=== PATIENT | female | born 1975 | race Caucasian/White ===

== ENCOUNTER 2016-11-08 18:21 | Emergency (ER) | payer OTHER, MEDICAID ==
[2016-11-08] MEDS ORDERED: ASPIRIN 81 MG TABLET, CHEWABLE PO ONE (18:50)
--- NOTE | 2016-11-08 18:50 | ER Document Report ---
ED Medical Screen (RME) - General Stated Complaint: CHEST PAIN Time seen by provider: 18:48 Mode of Arrival: Ambulatory Information source: Patient Notes: 41-year-old female presents to ED for chest pain this substernal going up to her jaw with numbness down the left arm started about 10:00 this morning. She states she has MS and she's been shipped to [place] before for chest pain. She says they told her they thought it was related to the MS before. She states she stayed there for 3 days and she doesn't really remember what was done during that time. I have greeted and performed a rapid initial assessment of this patient. A comprehensive ED assessment and evaluation of the patient, analysis of test results and completion of medical decision making process will be conducted by an additional ED providers. TRAVEL OUTSIDE OF THE [place] IN LAST 30 DAYS: No - Related Data Allergies/Adverse Reactions: Penicillins Allergy (Mild, Verified 03/15/15 21:45) Hives Past Medical History - Past Medical History Cardiac Medical History: Reports: Hx Atrial Fibrillation - SVT, Hx DVT, Hx Pulmonary Embolism Denies: Hx Coronary Artery Disease, Hx Heart Attack, Hx Hypertension Pulmonary Medical History: Reports: Hx Bronchitis, Hx Pneumonia Denies: Hx Asthma, Hx COPD, Hx Tuberculosis Neurological Medical History: Reports: Hx Migraine. Denies: Hx Cerebrovascular Accident, Hx Seizures Endocrine Medical History: Reports: Hx Diabetes Mellitus Type 2 Renal/ Medical History: Reports: Hx Kidney Stones, Hx Ovarian Cysts Malignancy Medical History: Reports: Hx Skin Cancer GI Medical History: Reports: Hx Gastroesophageal Reflux Disease, Hx Irritable Bowel Musculoskeltal Medical History: Reports Hx Arthritis Psychiatric Medical History: Reports: Hx Anxiety, Hx Depression Traumatic Medical History: Reports: Hx Fractures Past Surgical History: Reports: Hx Section - x2, Hx Cholecystectomy, Hx Hysterectomy. Denies: Hx Pacemaker - Immunizations Immunizations up to date: Yes Hx Diphtheria, Pertussis, Tetanus Vaccination: Yes
[2016-11-08 19:18] LABS: ABSOLUTE BASOPHILS # (AUTO) 0.1 10^3/uL (0.0-0.2); ABSOLUTE EOSINOPHILS # (AUTO) 0.1 10^3/uL (0.0-0.6); ABSOLUTE LYMPHOCYTES (AUTO) 2.4 10^3/uL (0.5-4.7); ABSOLUTE MONOCYTES (AUTO) 0.4 10^3/uL (0.1-1.4); ABSOLUTE NEUT (AUTO) 4.6 10^3/uL (1.7-8.2); BASOPHILS % (AUTO) 0.7 % (0-2); HEMATOCRIT 42.1 % (36.0-47.0); HGB HCT DIFFERENCE -0.1; LYMPHOCYTES % (AUTO) 32.5 % (13-45); MEAN CORPUSCULAR HEMOGLOBIN 31.1 pg (27.0-33.4); MEAN CORPUSCULAR HGB CONC 33.2 g/dL (32.0-36.0); MEAN CORPUSCULAR VOLUME 94 fl (80-97); MONOCYTES % (AUTO) 5.1 % (3-13); RED CELL DISTRIBUTION WIDTH 13.4 % (11.5-14.0); SEGMENTED NEUTROPHILS % (AUTO) 60.7 % (42-78); WHITE BLOOD COUNT 7.5 10^3/uL (4.0-10.5)
[2016-11-08 19:32] LABS: ALANINE AMINOTRANSFERASE 22 U/L (9-52); ALKALINE PHOSPHATASE 56 U/L (38-126); ANION GAP 15 (5-19); ASPARTATE AMINO TRANSFERASE 18 U/L (14-36); BILIRUBIN,TOTAL 0.5 mg/dL (0.2-1.3); BLOOD UREA NITROGEN 7 mg/dL (7-20); CALCIUM 10.2 mg/dL (8.4-10.2); CARBON DIOXIDE 24 mmol/L (22-30); CHLORIDE 106 mmol/L (98-107); CREATINE KINASE 76 U/L (30-135); GLUCOSE 104 mg/dL (75-110); MAGNESIUM 2.2 mg/dL (1.6-2.3); POTASSIUM 4.1 mmol/L (3.6-5.0); SODIUM 144.8 mmol/L (137-145); TOTAL PROTEIN 8.1 g/dL (6.3-8.2)
[2016-11-08 19:43] LABS: CREATINE KINASE MB 0.33 ng/mL (<4.55); TROPONIN I < 0.012 ng/mL
[2016-11-08 19:57] LABS: APPEARANCE,URINE CLEAR; BILIRUBIN,URINE NEGATIVE (NEGATIVE); GLUCOSE, URINE NEGATIVE (NEGATIVE); KETONES,URINE NEGATIVE (NEGATIVE); LEUKOCYTE ESTERASE,URINE NEGATIVE (NEGATIVE); NITRITE,URINE NEGATIVE (NEGATIVE); PROTEIN,URINE NEGATIVE (NEGATIVE); URINE SPECIFIC GRAVITY 1.003; UROBILINOGEN,URINE NEGATIVE mg/dL (<2.0)
--- NOTE | 2016-11-08 19:59 | EKG REPORT ---
SEVERITY:- NORMAL ECG - SINUS RHYTHM : Confirmed by: Kindra Fleming MD 08-Nov-2016 19:58:30
[2016-11-08 20:10] LABS: URINE BARBITURATES SCREEN NEGATIVE; URINE METHADONE SCREEN NEGATIVE; URINE OPIATES LOW NEGATIVE; URINE PHENCYCLIDINE SCREEN NEGATIVE
[2016-11-08] MEDS ORDERED: ONDANSETRON 4 MG TAB.RAPDIS PO ONE (21:56)
[2016-11-08] MEDS ORDERED: HYDROCODONE/ACETAMINOPHEN 5-325 MG TABLET PO ONE (21:56)
--- NOTE | 2016-11-08 21:58 | ER Document Report ---
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 She feels a fluttering up in her neck and felt a numbness in her left hand. Patient states she had the same symptoms last month and was seen here but left AGAINST MEDICAL ADVICE with an incomplete workup. Patient states she has actually had this intermittently for some time, states that in 2013 she went to [facility] for 3 days and had multiple tests including imaging done, she states she believes she was told that she might have multiple sclerosis and this could've been the source of her pain. TRAVEL OUTSIDE OF THE [place] IN LAST 30 DAYS: No - Related Data Allergies/Adverse Reactions: Penicillins Allergy (Mild, Verified 11/08/16 18:48) Hives Past Medical History - General Information source: Patient - Social History Smoking Status: Current Every Day Smoker Chew tobacco use (# tins/day): No Frequency of alcohol use: None Drug Abuse: None Family History: CAD Patient has suicidal ideation: No Patient has homicidal ideation: No - Past Medical History Cardiac Medical History: Reports: Hx Atrial Fibrillation - SVT, Hx DVT, Hx Pulmonary Embolism Denies: Hx Coronary Artery Disease, Hx Heart Attack, Hx Hypertension Pulmonary Medical History: Reports: Hx Bronchitis, Hx Pneumonia Denies: Hx Asthma, Hx COPD, Hx Tuberculosis Neurological Medical History: Reports: Hx Migraine. Denies: Hx Cerebrovascular Accident, Hx Seizures Endocrine Medical History: Reports: Hx Diabetes Mellitus Type 2 Renal/ Medical History: Reports: Hx Kidney Stones, Hx Ovarian Cysts. Denies: Hx Peritoneal Dialysis Malignancy Medical History: Reports: Hx Skin Cancer GI Medical History: Reports: Hx Gastroesophageal Reflux Disease, Hx Irritable Bowel Musculoskeltal Medical History: Reports Hx Arthritis Psychiatric Medical History: Reports: Hx Anxiety, Hx Depression Traumatic Medical History: Reports: Hx Fractures Past Surgical History: Reports: Hx Section - x2, Hx Cholecystectomy, Hx Hysterectomy. Denies: Hx Pacemaker - Immunizations Immunizations up to date: Yes Hx Diphtheria, Pertussis, Tetanus Vaccination: Yes Review of Systems - Review of Systems Constitutional: No symptoms reported EENT: No symptoms reported Cardiovascular: See HPI Respiratory: See HPI Gastrointestinal: No symptoms reported Genitourinary: No symptoms reported Female Genitourinary: No symptoms reported Musculoskeletal: See HPI Skin: No symptoms reported Hematologic/Lymphatic: No symptoms reported Neurological/Psychological: See HPI Physical Exam - Vital signs Vitals: Temp Pulse Resp BP Pulse Ox 97.7 F 87 20 113/82 100 11/08/16 18:45 11/08/16 18:45 11/08/16 18:45 11/08/16 18:45 11/08/16 18:45 Interpretation: Normal - General General appearance: Appears well, Alert In distress: None - Patient sitting calmly, very well-appearing - HEENT Head: Normocephalic, Atraumatic Eyes: Normal Conjunctiva: Normal Extraocular movements intact: Yes Eyelashes: Normal Pupils: PERRL Nasal: Normal Mouth/Lips: Normal Mucous membranes: Normal Pharynx: Normal Neck: Normal - Respiratory Respiratory status: No respiratory distress Chest status: Nontender Breath sounds: Normal Chest palpation: Normal - Cardiovascular Rhythm: Regular. No: Tachycardia Heart sounds: Normal auscultation, S1 appreciated, S2 appreciated Murmur: No - Abdominal Inspection: Normal Distension: No distension Bowel sounds: Normal Tenderness: Nontender. No: Tender, Guarding Organomegaly: No organomegaly - Back Back: Normal, Nontender. No: Tender - Extremities General upper extremity: Normal inspection, Nontender, Normal strength, Normal temperature General lower extremity: Normal inspection, Nontender, Normal strength, Normal temperature - Neurological Neuro grossly intact: Yes Cognition: Normal Orientation: AAOx4 [place] Coma Scale Eye Opening: Spontaneous [place] Coma Scale Verbal: Oriented [place] Coma Scale Motor: Obeys Commands Kenneth Coma Scale Total: 15 Speech: Normal Motor strength normal: LUE, RUE, LLE, RLE Sensory: Normal - Psychological Associated symptoms: Normal affect, Normal mood - Skin Skin Temperature: Warm Skin Moisture: Dry Skin Color: Normal Course - Re-evaluation Re-evalutation: CBC, chemistry, cardiac enzymes, d-dimer, TSH, all unremarkable. Chest x-ray unremarkable, EKG shows sinus rhythm with no T-wave inversions in consecutive leads, no ST segment changes. On reevaluation several metallic asked patient wear her symptoms are she points to different location, the last time I evaluated her she pointed to the top of her shoulder on the left side. Patient told me she was having elevated heart rate and felt like her heart was racing, I immediately checked her heart manually at bedside and found the rate to be 68. Patient states that she was told the last time she had extensive workup for this that this might be related to her multiple sclerosis, she states that she was referred to an evaluated by neurology, she states that she wanted cardiac referral. Symptoms have been ongoing, based on her workup, previously similar symptoms, I have low suspicion of ACS or any emergent acute abnormality. Referring patient to cardiology, because of constellation of symptoms including pain over her chest patient will also be treated with Decadron, given Carafate because of history of GERD, and instructed to return if she worsens. Patient states understanding and agreement with plan. - Vital Signs Vital signs: Temp Pulse Resp BP Pulse Ox 98.2 F 69 14 120/72 97 11/09/16 00:21 11/09/16 00:21 11/09/16 00:21 11/09/16 00:21 11/09/16 00:21 - Laboratory Result Diagrams: 11/08/16 19:00 11/08/16 19:00 Discharge - Discharge Clinical Impression: Chest pain Qualifiers: Chest pain type: unspecified Qualified Code(s): R07.9 - Chest pain, unspecified Condition: Stable Disposition: HOME, SELF-CARE Additional Instructions: The source of your symptoms are unclear, your workup today shows no concerning abnormalities. Follow up with the Cardiology referral, take the carafate as directed. Return to the ED for any concerning or worsening symptoms. Prescriptions: Oxycodone HCl/Acetaminophen [Percocet 5-325 mg Tablet] 1 - 2 tab PO Q4H PRN #10 tablet PRN Reason: Sucralfate [Carafate 1 gm Tablet] 1 gm PO QID #40 tablet Referrals: NADEGE CLAY MD [ACTIVE STAFF] - Follow up as needed ABDIFATAH VELÁSQUEZ MD [ACTIVE STAFF] - 11/11/16
[2016-11-08] MEDS ORDERED: DEXAMETHASONE SOD PHOS INJ 10 MG/1 ML VIAL IM ONE (23:31)
[2016-11-09 00:29] VITALS: BP 120/72
== END 2016-11-09 00:25 | disposition home or self-care (01) ==
LOC: ER 18:21
DX: K21.9 Gastro-esophageal reflux disease without esophagitis (principal); R07.9 Chest pain, unspecified; R06.02 Shortness of breath; R20.0 Anesthesia of skin; E11.9 Type 2 diabetes mellitus without complications; F17.200 Nicotine dependence, unspecified, uncomplicated; Z86.711 Personal history of pulmonary embolism; Z86.718 Personal history of other venous thrombosis and embolism; Z87.01 Personal history of pneumonia (recurrent); Z85.828 Personal history of other malignant neoplasm of skin; Z88.0 Allergy status to penicillin
CPT/HCPCS: 93005; 99285; 96372; 36415; 82553; 82550; 83735; 84443; 85025; 80053; 81001; 84484; 80307; 85379; 83880; 71020; 93010; S0119; J1100

== ENCOUNTER 2016-11-13 18:24 | Emergency (ER) | payer OTHER, MEDICAID ==
[2016-11-13] MEDS ORDERED: NORMAL SALINE 1000 ML 1,000 ML IV ONE (19:27)
--- NOTE | 2016-11-13 19:27 | ER Document Report ---
ED General <SULAIMAN KRISHNAMURTHY - Last Filed: 11/13/16 22:51> - General Time seen by provider: 19:20 TRAVEL OUTSIDE OF THE [place] IN LAST 30 DAYS: No <KEVINRAMIRO - Last Filed: 11/14/16 06:34> - General Chief Complaint: Shortness Of Breath Stated Complaint: TREMORS,CHEST PAIN,SHORT OF BREATH Notes: Patient is a 41 year old female that comes to the ED for chief complaint of tremors, heart flutters, squeezing sensation in her chest, weakness in her legs. Symptoms intermittent, worse today. Patient states that she lost feeling and became lightheaded, and the bathroom in the waiting room she slumped against the wall and then down the wall, states she could not stop shaking, denies loss of consciousness. Patient states she has been very sleepy at home. Patient denies head, neck, back injury or any new areas of pain. EMS staff reports patient was alert and awake when she was found in the bathroom and brought to the bed to be placed on the monitor. Patient states she has had the same symptoms before but now abnormality has been found. Patient states that she has been told she might have multiple sclerosis, she's been referred to neurology but she has not had the chance to follow-up yet. Patient has a medication list with her this time, includes Klonopin 0.5 mg daily at bedtime, Percocet 10/325 q4 PRN, Zoloft, Nexium. (RAMIRO STORM) - Related Data Allergies/Adverse Reactions: Penicillins Allergy (Mild, Verified 11/08/16 18:48) Hives Past Medical History - General Information source: Patient - Social History Smoking Status: Current Every Day Smoker Chew tobacco use (# tins/day): Yes Frequency of alcohol use: None Drug Abuse: None Lives with: Family Family History: CAD Patient has suicidal ideation: No Patient has homicidal ideation: No - Past Medical History Cardiac Medical History: Reports: Hx Atrial Fibrillation - SVT, Hx DVT, Hx Pulmonary Embolism Denies: Hx Coronary Artery Disease, Hx Heart Attack, Hx Hypertension Pulmonary Medical History: Reports: Hx Bronchitis, Hx Pneumonia Denies: Hx Asthma, Hx COPD, Hx Tuberculosis Neurological Medical History: Reports: Hx Migraine. Denies: Hx Cerebrovascular Accident, Hx Seizures Endocrine Medical History: Reports: Hx Diabetes Mellitus Type 2 Renal/ Medical History: Reports: Hx Kidney Stones, Hx Ovarian Cysts. Denies: Hx Peritoneal Dialysis Malignancy Medical History: Reports: Hx Skin Cancer GI Medical History: Reports: Hx Gastroesophageal Reflux Disease, Hx Irritable Bowel Musculoskeltal Medical History: Reports Hx Arthritis Psychiatric Medical History: Reports: Hx Anxiety, Hx Depression Traumatic Medical History: Reports: Hx Fractures Past Surgical History: Reports: Hx Section - x2, Hx Cholecystectomy, Hx Hysterectomy. Denies: Hx Pacemaker - Immunizations Immunizations up to date: Yes Hx Diphtheria, Pertussis, Tetanus Vaccination: Yes <RAMIRO STORM - Last Filed: 11/14/16 06:34> Review of Systems - Review of Systems Constitutional: No symptoms reported EENT: No symptoms reported Cardiovascular: See HPI Respiratory: See HPI Gastrointestinal: No symptoms reported Genitourinary: No symptoms reported Female Genitourinary: No symptoms reported Musculoskeletal: No symptoms reported Skin: No symptoms reported Hematologic/Lymphatic: No symptoms reported Neurological/Psychological: See HPI <RAMIRO STORM - Last Filed: 11/14/16 06:34> Physical Exam - Vital signs Interpretation: Normal - General General appearance: Appears well, Alert In distress: None - patient alert, talkative, twitching arms and legs but no distress noted - HEENT Head: Normocephalic, Atraumatic. No: Abrasions, Ecchymosis, Open wounds Eyes: Normal Conjunctiva: Normal Extraocular movements intact: Yes Eyelashes: Normal Pupils: PERRL Sinus: Normal Nasal: Normal Mouth/Lips: Normal Mucous membranes: Normal Pharynx: Normal Neck: Normal - Respiratory Respiratory status: No respiratory distress Chest status: Nontender Breath sounds: Normal Chest palpation: Normal - Cardiovascular Rhythm: Regular Heart sounds: Normal auscultation Murmur: No - Abdominal Inspection: Normal Distension: No distension Bowel sounds: Normal Tenderness: Nontender Organomegaly: No organomegaly - Back Back: Normal, Nontender - Extremities General upper extremity: Normal inspection, Nontender, Normal color, Normal ROM , Normal temperature General lower extremity: Normal inspection, Nontender, Normal color, Normal ROM , Normal temperature, Normal weight bearing. 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 Sensory: Normal - Psychological Associated symptoms: Normal affect, Normal mood - Skin Skin Temperature: Warm Skin Moisture: Dry Skin Color: Normal <RAMIRO STORM - Last Filed: 11/14/16 06:34> - Vital signs Vitals: Resp Pulse Ox 24 H 97 11/13/16 18:49 11/13/16 18:49 (SULAIMAN KRISHNAMURTHY) (RAMIRO STORM) Course - Laboratory Result Diagrams: 11/13/16 18:50 11/13/16 18:50 <SULAIMAN KRISHNAMURTHY - Last Filed: 11/13/16 22:51> - Laboratory Result Diagrams: 11/13/16 18:50 11/13/16 18:50 <RAMIRO STORM - Last Filed: 11/14/16 06:34> - Re-evaluation Re-evalutation: On my examination patient has what appear to be voluntary tremors of her upper and lower extremities, patient is wide awake, speaking, patient is not lethargic , patient does not appear to be post ictal. Patient does not have his history of seizure disorders, patient herself denies any memory loss or loss of consciousness, patient has a normal neurologic exam on my examination. Vital signs normal, workup unremarkable again, patient has had multiple normal workups recently. I discussed workup with patient, I do not see any acute abnormality, chest pains patient has complained of her months always had negative workups and patient has still not follow-up with cardiology even though she has stated she would and she has been referred. Patient has also been referred to neurology. Patient is requesting to get a second opinion, states she would like to speak to my supervising physician. Patient spoke with Dr. Krishnamurthy. Dr. Krishnamurthy did find that patient had a normal MRI in 2014, patient had told me that she had an abnormal MRI. Based on examination, workup , symptoms I have very low suspicion of any acute abnormality including acute coronary syndrome, patient has been evaluated within the week with d-dimer that is not elevated, patient is not tachycardic or in any distress, patient does not have shortness of breath. Discussed with Dr. Krishnamurthy after his evaluation. Discharging and follow-up with cardiology and neurology. (RAMIRO STORM) - Vital Signs Vital signs: Temp Pulse Resp BP Pulse Ox 98.8 F 92 16 108/74 95 11/13/16 19:16 11/13/16 19:00 11/13/16 22:01 11/13/16 22:01 11/13/16 22:01 (SULAIMAN KRISHNAMURTHY) (RAMIRO STORM) - Transfer of Care Notes: 11/13/16 22:51 Patient was seen by Ramiro Storm, physician's assistant head cashier. Informed her that the patient's presents for complaint of chest pain which she's been seen here for several times in the past. She has had several workups which have been negative. I did see her back in September. At that time she had previously been seen at [facility] and had a heart cath however she could not tell me the results of it according to my documentation from September. He says she again complains today of chest pain. She also complains of having tremors and seizure-like activity. Mr. Storm said that the patient would have episodes where she started trembling in the awake and alert. He said that the tremors appeared voluntary and should would be awake for the entire episode and it did not appear consistent with seizure. She never had any postictal phase. She did not have any other neurologic deficits on his exam. He is attempting to refer her to cardiology due to her chronic recurring chest pain as well as neurology but the patient is unhappy with this disposition requested to see the attending physician, me. Prior to going into the room I did review the patient' s records. She had told Ramiro that she had a previous MRI which showed lesions consistent with multiple sclerosis. I did find an MRI performed in [address] Granger. This MRI was read as normal. I also reviewed multiple visits to the ER where she's had multiple cardiac workups with negative cardiac enzymes. I then once the room to discuss the patient her symptoms and what her concerns are and try to feel what I can do to help her. She describes her chest pain as being a pressure type sensation in her chest that goes up into her neck and feels like a pulsating in her neck. She says it's been ongoing for a long time and comes and goes. She says that she has tremors at, and go effects both sides of her body. She is unsure what causes these as well. She says that she' s had a previous number puncture which showed bands. She was told this by Dr. Granger. She also is says that she was told by Dr. Granger that her MRI showed signs of multiple sclerosis. I did inform her that did review the results of MRI that was performed by Dr. Granger and it was read as normal. Told her that I cannot find results a lumbar puncture prior to me going in there. Currently on exam patient's moving all extremities as she talks to me is normal coordination she has normal facial movement and normal interaction without any signs or speech. The patient says she wishes to be transferred by him once to facility that has neurology for neurology workup. Informed her that I do not currently have a EMTALA worthy reason to transfer and therefore the outside facilities would not have to nescessary accept her based on what Mr. Storm has found on exam and workup. I informed her that I would have to evaluate her to see what deficits I could find. If I find something different with my medical exam than I may be able to justify transfer. Patient refuses any physical exam evaluation by me. I asked her why she does not want me to evaluate her, she says "the physician's assistant head cashier has already evaluated me, I do not need you to evaluate me as well." I informed her that I cannot make a well informed decision on her future care were possibly and change what Mr. Storm has found if I cannot evaluate her to see if I have any different findings on my exam. Patient still refuses my exam and now requests to be discharged home. Patient has refused by medical screening exam which still somewhat baffles me being that she requested a second opinion. I will discharge the patient as she requests. I cannot hold her against her will. She is awake and alert and oriented and acting otherwise appropriately. Patient will be discharged as she requests. (SULAIMAN KRISHNAMURTHY) Discharge <SULAIMAN KRISHNAMURTHY - Last Filed: 11/13/16 22:51> <RAMIRO STORM - Last Filed: 11/14/16 06:34> - Discharge Clinical Impression: Occasional tremors Chest pain Qualifiers: Chest pain type: unspecified Qualified Code(s): R07.9 - Chest pain, unspecified Condition: Stable Disposition: HOME, SELF-CARE Additional Instructions: No acute abnormalities are noted on your workup and evaluation today. Continue your current medications. Follow up with both Neurology and Cardiology referrals for additional evaluation. Return to the ED for any concerning symptoms. Referrals: FRANK SALMERON MD [Primary Care Provider] - Follow up as needed ABDIFATAH VELÁSQUEZ MD [ACTIVE STAFF] - Follow up as needed GREGORIO FARIA MD [ACTIVE STAFF] - Follow up as needed
[2016-11-13 19:46] LABS: ABSOLUTE BASOPHILS # (AUTO) 0.1 10^3/uL (0.0-0.2); ABSOLUTE EOSINOPHILS # (AUTO) 0.2 10^3/uL (0.0-0.6); ABSOLUTE LYMPHOCYTES (AUTO) 3.1 10^3/uL (0.5-4.7); ABSOLUTE MONOCYTES (AUTO) 0.5 10^3/uL (0.1-1.4); ABSOLUTE NEUT (AUTO) 4.1 10^3/uL (1.7-8.2); BASOPHILS % (AUTO) 0.7 % (0-2); EOSINOPHILS % (AUTO) 1.9 % (0-6); HEMATOCRIT 37.3 % (36.0-47.0); HEMOGLOBIN 12.7 g/dL (12.0-15.5); HGB HCT DIFFERENCE 0.8; LYMPHOCYTES % (AUTO) 39.5 % (13-45); MEAN CORPUSCULAR HEMOGLOBIN 31.8 pg (27.0-33.4); MEAN CORPUSCULAR VOLUME 94 fl (80-97); MONOCYTES % (AUTO) 5.9 % (3-13); RED BLOOD COUNT 3.99 10^6/uL (3.72-5.28); RED CELL DISTRIBUTION WIDTH 13.2 % (11.5-14.0); WHITE BLOOD COUNT 7.9 10^3/uL (4.0-10.5)
[2016-11-13 19:52] LABS: ALANINE AMINOTRANSFERASE 23 U/L (9-52); ALBUMIN 4.1 g/dL (3.5-5.0); ALCOHOL < 10 mg/dL (NONE DETECTED); ALKALINE PHOSPHATASE 57 U/L (38-126); ANION GAP 10 (5-19); ASPARTATE AMINO TRANSFERASE 19 U/L (14-36); BILIRUBIN,TOTAL 0.3 mg/dL (0.2-1.3); BLOOD UREA NITROGEN 11 mg/dL (7-20); CALCIUM 9.6 mg/dL (8.4-10.2); CARBON DIOXIDE 27 mmol/L (22-30); CHLORIDE 106 mmol/L (98-107); CREATINE KINASE 65 U/L (30-135); CREATININE RESULT 0.86 mg/dL (0.52-1.25); GLUCOSE 82 mg/dL (75-110); MAGNESIUM 2.1 mg/dL (1.6-2.3); POTASSIUM 4.1 mmol/L (3.6-5.0); SODIUM 143.4 mmol/L (137-145); TOTAL PROTEIN 7.1 g/dL (6.3-8.2)
[2016-11-13] MEDS ORDERED: LORAZEPAM INJ 2 MG/1 ML VIAL IV ONE (19:56)
[2016-11-13 20:06] LABS: CREATINE KINASE MB < 0.22 ng/mL (<4.55); TROPONIN I < 0.012 ng/mL
[2016-11-13 20:10] LABS: APPEARANCE,URINE CLEAR; BILIRUBIN,URINE NEGATIVE (NEGATIVE); GLUCOSE, URINE NEGATIVE (NEGATIVE); KETONES,URINE NEGATIVE (NEGATIVE); LEUKOCYTE ESTERASE,URINE NEGATIVE (NEGATIVE); NITRITE,URINE NEGATIVE (NEGATIVE); PROTEIN,URINE NEGATIVE (NEGATIVE); UROBILINOGEN,URINE NEGATIVE mg/dL (<2.0)
[2016-11-13 20:21] LABS: URINE BARBITURATES SCREEN NEGATIVE; URINE METHADONE SCREEN NEGATIVE; URINE OPIATES LOW NEGATIVE; URINE PHENCYCLIDINE SCREEN NEGATIVE
[2016-11-13 22:39] VITALS: BP 108/74
--- NOTE | 2016-11-14 11:22 | EKG REPORT ---
SEVERITY:- NORMAL ECG - SINUS RHYTHM : Confirmed by: Javid Guidry 14-Nov-2016 11:21:43
== END 2016-11-13 22:45 | disposition home or self-care (01) ==
LOC: ER 18:24
DX: R07.9 Chest pain, unspecified (principal); R25.1 Tremor, unspecified; R06.02 Shortness of breath; R53.1 Weakness; F17.210 Nicotine dependence, cigarettes, uncomplicated
CPT/HCPCS: 93005; 99285; 96361; 96374; 36415; 82553; 82962; 80307 ×2; 82550; 83735; 85025; 80053; 81001; 84484; 71010; 93010; J2060; J7030

== ENCOUNTER 2016-11-21 08:15 | Day surgery (SDC) | payer OTHER, MEDICAID ==
[2016-11-21 09:15] LABS: PROTHROMBIN TIME 12.6 SEC (11.4-15.4)
[2016-11-21 09:16] LABS: PARTIAL THROMBOPLASTIN TIME 25.8 SEC (23.5-35.8)
[2016-11-21] MEDS ORDERED: ACETAMINOPHEN 325 MG TABLET ONE (11:32)
[2016-11-21] MEDS ORDERED: ACETAMINOPHEN 325 MG TABLET PO PRN (11:48)
[2016-11-21 11:53] LABS: APPEARANCE ALL TUBES CLEAR; RBC AVERAGE 0.5; RBC DILUENT USED NONE USED; RBC DILUTION FACTOR 1; RBC SIDE 1 0; RBC SIDE 2 1; TOTAL RBC SQUARES COUNTED 225
[2016-11-21 11:54] LABS: WHITE BLOOD CELL,CSF 2 /uL (0-5)
[2016-11-21 12:10] LABS: GLUCOSE,CSF 55 mg/dL (40-70)
[2016-11-21 14:09] VITALS: BP 111/75
[2016-11-22 15:38] LABS: ALBUMIN SERUM 4.2 g/dL (3.5-5.5); CSF IGG INDEX 0.6 (0.0-0.7); IGG SYNTHESIS RATE CSF -0.3 mg/day (-9.9 TO +3.3); IGG/ALBUMIN RATIO CSF 0.1 (0.00-0.25)
== END 2016-11-21 13:30 | disposition home or self-care (01) ==
LOC: RAD 08:15
PROVIDERS: ATTEND Specialist
PROC: 009U3ZX Drainage of Spinal Canal, Percutaneous Approach, Diagnostic (ICD-10-PCS; principal; 2016-11-21)
DX: G35 Multiple sclerosis (principal); R25.1 Tremor, unspecified; G40.909 Epilepsy, unspecified, not intractable, without status epilepticus; Z88.0 Allergy status to penicillin
CPT/HCPCS: 36415; 62270; 77003; 82784; 82945; 82947; 83916; 84157; 85610; 85730; 87070; 87205; 89050

== ENCOUNTER 2016-11-26 07:28 | Day surgery (SDC) | payer OTHER, MEDICAID ==
[~2016-11-26 07:28] MED LIST: DIPHENHYDRAMINE HCL 50 MG/ML VIAL ONE; EPINEPHRINE INJ 1 MG/10 ML DISP.SYRIN ONE; FLUMAZENIL INJ 0.5 MG/5 ML VIAL IV ONE; GLUCAGON,HUMAN RECOMB 1 MG INJ ONE; NALOXONE HCL INJ/PF 0.4 MG/1 ML SDV ONE; ONDANSETRON HCL INJ/PF 4 MG/2 ML SDV ONE; PROMETHAZINE HCL INJ 25 MG/1 ML VIAL ONE
[2016-11-26] MEDS: MIDAZOLAM 2 MG/2 ML INJ ONE ×3 (08:10→08:18)
[2016-11-26] MEDS: FENTANYL CITRATE INJ/PF 100 MCG/2 ML AMPUL ONE ×2 (08:12→08:14)
--- NOTE | 2016-11-26 08:33 | Operative Report ---
Operative Report DATE OF SURGERY: 11/26/16 Operative Report: The risks benefits and alternatives of the procedure explained to the patient in detail and informed consent is obtained that GIF Olympus video scope was inserted into the patient's mouth and hypopharynx the esophagus is identified intubated and insufflated the scope was then advanced through the esophagus stomach and duodenum retroflexion maneuver is done the esophagus stomach and first and second portions of the duodenum examined PREOPERATIVE DIAGNOSIS: Gastro-esophageal reflux disease, epigastric discomfort POSTOPERATIVE DIAGNOSIS: Gastritis status post biopsy rule out Helicobacter pylori OPERATION: EGD with biopsy SURGEON: RUTH ANN SIMPSON ANESTHESIA: Moderate Sedation - 6 mg of Versed, 100 g of fentanyl. TISSUE REMOVED OR ALTERED: Gastric specimen obtained COMPLICATIONS: None. ESTIMATED BLOOD LOSS: none. INTRAOPERATIVE FINDINGS: Normal esophagus. First and second portions of the duodenum are normal. PROCEDURE: Patient tolerated the procedure well. No immediate postprocedure complications are noted. Patient is discharged in good condition. Discharge date 11/26/2016. Discharge diet: Regular. Discharge activity: Regular. We'll await on biopsies Patient has a 2-3 week follow-up to discuss findings. Patient is instructed to call the office or proceed to the emergency room if any further problems or questions.
[2016-11-26 09:48] VITALS: BP 95/56
== END 2016-11-26 09:30 | disposition home or self-care (01) ==
LOC: END 07:28
PROVIDERS: ATTEND Internal Medicine Gastroenterology
PROC: 0DB68ZX Excision of Stomach, Via Natural or Artificial Opening Endoscopic, Diagnostic (ICD-10-PCS; principal; 2016-11-26 08:00)
DX: K21.9 Gastro-esophageal reflux disease without esophagitis (principal); M19.90 Unspecified osteoarthritis, unspecified site; D64.9 Anemia, unspecified; E11.9 Type 2 diabetes mellitus without complications; I10 Essential (primary) hypertension; K29.50 Unspecified chronic gastritis without bleeding; G35 Multiple sclerosis; E78.00 Pure hypercholesterolemia, unspecified; Z79.899 Other long term (current) drug therapy; Z79.84 Long term (current) use of oral hypoglycemic drugs; Z88.0 Allergy status to penicillin
CPT/HCPCS: 43239; 88342 ×2; 88305 ×2; J2250; J3010; J2405; J0171; J1200; J1610; J2310; J2550; J3490

== ENCOUNTER 2017-03-25 12:50 | Emergency (ER) | payer OTHER, MEDICAID ==
[2017-03-25 13:07] VITALS: BP 121/60
--- NOTE | 2017-03-25 14:05 | ER Document Report ---
ED Extremity Problem, Lower - General Chief Complaint: Low Back Pain Stated Complaint: BACK PAIN,LEFT HIP PAIN Time Seen by Provider: 03/25/17 13:46 Mode of Arrival: Ambulatory Information source: Patient Notes: 42-year-old female presents to ED for left hip and low back pain since yesterday when she was walking and felt a pop. He has a history of chronic back pain and MS states she recently had a epidural for her chronic back pain. States she been taking 2 ibuprofen at a time and has had 6 ibuprofen yesterday and several today TRAVEL OUTSIDE OF THE [place] IN LAST 30 DAYS: No - HPI Patient complains to provider of: Pain Location: Hip - Left Occurred: Yesterday Where: Outdoors Onset/Duration: Gradual Quality of pain: Sharp Severity: Moderate Pain Level: 4 Recent injury: Possibly Associated symptoms: Dent a pop, Painful ambulation Exacerbated by: Movement, Walking Relieved by: Nothing - Related Data Allergies/Adverse Reactions: Penicillins Allergy (Mild, Verified 03/25/17 13:04) Hives Past Medical History - General Information source: Patient - Social History Smoking Status: Current Every Day Smoker Chew tobacco use (# tins/day): No Frequency of alcohol use: None Drug Abuse: None Lives with: Family Family History: CAD Patient has suicidal ideation: No Patient has homicidal ideation: No - Past Medical History Cardiac Medical History: Reports: Hx Atrial Fibrillation - SVT, Hx DVT, Hx Pulmonary Embolism Pulmonary Medical History: Reports: Hx Bronchitis, Hx Pneumonia EENT Medical History: Reports: None Neurological Medical History: Reports: Hx Migraine Endocrine Medical History: Reports: Hx Diabetes Mellitus Type 2 Renal/ Medical History: Reports: Hx Kidney Stones, Hx Ovarian Cysts Malignancy Medical History: Reports: Hx Skin Cancer GI Medical History: Reports: Hx Gastroesophageal Reflux Disease, Hx Irritable Bowel Musculoskeltal Medical History: Reports Hx Arthritis, Reports Hx Multiple Sclerosis Skin Medical History: Reports None Psychiatric Medical History: Reports: Hx Anxiety, Hx Depression Traumatic Medical History: Reports: Hx Fractures Infectious Medical History: Reports: None Past Surgical History: Reports: Hx Section - x2, Hx Cholecystectomy, Hx Hysterectomy - Immunizations Immunizations up to date: Yes Hx Diphtheria, Pertussis, Tetanus Vaccination: Yes Review of Systems - Review of Systems Constitutional: No symptoms reported EENT: No symptoms reported Cardiovascular: No symptoms reported Respiratory: No symptoms reported Gastrointestinal: No symptoms reported Genitourinary: No symptoms reported Female Genitourinary: No symptoms reported Musculoskeletal: Back pain, Other - Hip pain left Skin: No symptoms reported Hematologic/Lymphatic: No symptoms reported Neurological/Psychological: No symptoms reported -: Yes All other systems reviewed and negative Physical Exam - Vital signs Vitals: Temp Pulse Resp BP Pulse Ox 98.2 F 63 16 121/60 98 03/25/17 13:04 03/25/17 13:04 03/25/17 13:04 03/25/17 13:04 03/25/17 13:04 Interpretation: Normal - General General appearance: Appears well, Alert - HEENT Head: Normocephalic, Atraumatic Eyes: Normal Pupils: PERRL - Respiratory Respiratory status: No respiratory distress Chest status: Nontender Breath sounds: Normal Chest palpation: Normal - Cardiovascular Rhythm: Regular Heart sounds: Normal auscultation Murmur: No - Abdominal Inspection: Normal Distension: No distension Bowel sounds: Normal Tenderness: Tender - Left pelvic tenderness Organomegaly: No organomegaly - Back Back: Normal, Tender. No: Deformity/step-off, CVA tenderness, Vertebra tenderness, Scars, Scoliosis, Wounds - Extremities General upper extremity: Normal inspection, Nontender, Normal color, Normal ROM , Normal temperature General lower extremity: Normal color, Normal temperature. No: Lili's sign Hip: Tender, Pain with ROM. No: Normal, Nontender, Abrasion, Deformity, Dislocation, Ecchymosis, Instability, Laceration, Unable to bear weight, Other Thigh: Tender. No: Normal, Nontender, Abrasion, Deformity, Dislocation, Ecchymosis, Instability, Laceration, Unable to bear weight, Other - Neurological Neuro grossly intact: Yes Cognition: Normal Orientation: AAOx4 Kenneth Coma Scale Eye Opening: Spontaneous [place] Coma Scale Verbal: Oriented [place] Coma Scale Motor: Obeys Commands [place] Coma Scale Total: 15 Speech: Normal Motor strength normal: LUE, RUE, LLE, RLE Sensory: Normal - Psychological Associated symptoms: Normal affect, Normal mood - Skin Skin Temperature: Warm Skin Moisture: Dry Skin Color: Normal Course - Re-evaluation Re-evalutation: 03/25/17 15:09 Discussed x-rays with patient and patient discharged home with instructions to follow-up with her primary doctor. - Vital Signs Vital signs: Temp Pulse Resp BP Pulse Ox 98.2 F 63 16 121/60 98 03/25/17 13:04 03/25/17 13:04 03/25/17 13:04 03/25/17 13:04 03/25/17 13:04 - Diagnostic Test Radiology reviewed: Image reviewed, Reports reviewed Discharge - Discharge Clinical Impression: Left hip pain Back pain Qualifiers: Back pain location: low back pain Chronicity: chronic Back pain laterality: unspecified Sciatica presence: without sciatica Qualified Code(s): M54.5 - Low back pain Condition: Stable Disposition: HOME, SELF-CARE Additional Instructions: LOW BACK PAIN: Three out of every four people will have an episode of disabling back pain during their lifetime. Most commonly the pain is due to straining of the muscles and ligaments in the low back. Usual treatment includes: (1) Rest on a firm surface. Avoid lying on your stomach. (2) Ice pack the painful area. After a few days, gentle heat may be used intermittently to relax the area, or ice packs can be continued. (3) Medication may be needed -- muscle relaxers and antiinflammatory medicines are commonly used. (4) As the back improves, exercises are prescribed to strengthen the back and abdominal muscles. Your doctor will advise you on the proper care for your back at each stage in your recovery. You may be better in a few days -- or healing may take several weeks. If new symptoms of a "herniated disc" (radiation of pain, numbness, or tingling down the back of the leg or weakness in the leg) occur, you should be re-examined. Further testing may be necessary. Also seen for a left hip pain with no acute changes on your x-ray. 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 Chronic Pain Control Stress, inactivity, and depression make pain more severe regardless of the cause of the pain. Stress and poor physical condition can cause pain such as headaches and backache. Relaxation: Rest in a quiet place with your eyes closed for 20 minutes twice daily. Concentrate on a pleasant image, or simply "feel" your breathing. Clear your mind. Stress management: Deal with your "stressors." Either take action, or eliminate the stressor from your life. Don't let things hang over you. Accept those things you can't change. Nutrition: Eat small, balanced meals -- don't skip, don't overeat. Meals should be high-carbohydrate, low-sugar, low-fat. Exercise: Exercise helps painful conditions and eases stress. Get 30 minutes of moderate exercise, five days a week. Do an activity that does not flare your pain. Precautions: Pain which continues to disrupt daily activities, or which changes in nature, requires a medical evaluation. Pain Clinic referral is available. We do not manage chronic pain in the Emergency Department. We will try to appropriately help you through an acute flare of your chronic painful condition , but for on-going chronic pain that does not improve, you will need to see your private doctor or shipyard painter apprentice. We do not provide repeated medication management of chronic painful conditions. If you wish, we can provide the name of local pain management physicians. ORAL NARCOTIC MEDICATION: You have been given a prescription for pain control. This medication is a narcotic. It's best taken with food, as nausea can result if taken on an empty stomach. Don't operate machinery or drive within six hours of taking this medication. Do not combine this medicine with alcohol, or with any medication which can cause sedation (such as cold tablets or sleeping pills) unless you get permission from the physician. Narcotics tend to cause constipation. If possible, drink plenty of fluids and eat a diet high in fiber and fruits. Please be aware that prescription narcotics also have the potential for abuse. People become addicted to these medications because of the general sense of wellbeing that they induce. This feeling along with a significant reduction in tension, anxiety, and aggression provides a stimulating seductive quality to these drugs. Once your pain is under control, we encourage you to discard your unused narcotics. ICE PACKS: Apply ice packs frequently against the painful area. Many different schedules are recommended, such as "20 minutes on, 20 minutes off" or "one hour ice, two hours rest." If you need to work, you may need to go longer between ice treatments. You should plan to have the area ice packed AT LEAST one fourth of the time. The ice should be applied over the wrap, tape, or splint, or over a layer of cloth -- not directly against the skin. Some ice bags have a built-in cloth and can be put directly on the skin. WARM PACKS: After approximately two days, apply gentle heat (such as a heating pad or hot water bottle) for about 20 to 30 minutes about every two hours -- at least four times daily. Warmth and elevation will help you make a more rapid recovery , and will ease the pain considerably. Do not use HOT heat, and never apply heat for longer than 30 minutes. The continuous heat can invisibly damage skin and muscles -- even when no burn is seen on the surface. Damaged muscles can make you MORE sore. FOLLOW-UP CARE: If you have been referred to a physician for follow-up care, call the physician s office for an appointment as you were instructed or within the next two days. If you experience worsening or a significant change in your symptoms, notify the physician immediately or return to the Emergency Department at any time for re-evaluation. Forms: Smoking Cessation Education, Return to Work Referrals: HARMONY CASTRO MD [ACTIVE STAFF] - Follow up as needed
[2017-03-25 14:32] LABS: APPEARANCE,URINE SLIGHTLY-CLOUDY; BILIRUBIN,URINE NEGATIVE (NEGATIVE); GLUCOSE, URINE NEGATIVE (NEGATIVE); KETONES,URINE NEGATIVE (NEGATIVE); LEUKOCYTE ESTERASE,URINE NEGATIVE (NEGATIVE); NITRITE,URINE NEGATIVE (NEGATIVE); PROTEIN,URINE NEGATIVE (NEGATIVE); URINE SPECIFIC GRAVITY 1.009; UROBILINOGEN,URINE NEGATIVE mg/dL (<2.0)
--- NOTE | 2017-03-25 15:03 | RADIOLOGY REPORT (SQ) ---
EXAM DESCRIPTION: HIP LEFT AP/LATERAL COMPLETED DATE/TIME: 03/25/2017 2:29 pm REASON FOR STUDY: pain and popping COMPARISON: None. NUMBER OF VIEWS: Two views. TECHNIQUE: AP pelvis and additional frog-leg view of the left hip. LIMITATIONS: None. FINDINGS: MINERALIZATION: Normal. PRIMARY HIP: No fracture or dislocation. No worrisome bone lesions. OPPOSITE HIP: No fracture or dislocation. No worrisome bone lesions. PUBIS AND ISCHIUM: No fracture. PELVIS: No fracture. SACRUM: No fracture or dislocation. No worrisome bone lesions. LOWER LUMBAR SPINE: No fracture or dislocation. No worrisome bone lesions. No significant disc disea se. SOFT TISSUES: No findings. OTHER: No other significant finding. IMPRESSION: NEGATIVE STUDY OF THE LEFT HIP AND PELVIS. NO ACUTE POST-TRAUMATIC CHANGES. NO EXPLANAT ION FOR PAIN. TECHNICAL DOCUMENTATION: JOB ID: [id number] [employer]- All Rights Reserved
[2017-03-25] MEDS ORDERED: HYDROCODONE/ACETAMINOPHEN 5-325 MG 6 TAB/DSPK PO PRN (15:15)
== END 2017-03-25 15:40 | disposition home or self-care (01) ==
LOC: ER 12:50
DX: M25.552 Pain in left hip (principal); M54.5 Low back pain; G89.29 Other chronic pain; G35 Multiple sclerosis; F17.200 Nicotine dependence, unspecified, uncomplicated; I48.91 Unspecified atrial fibrillation; E11.9 Type 2 diabetes mellitus without complications; K21.9 Gastro-esophageal reflux disease without esophagitis; Z87.442 Personal history of urinary calculi; Z86.711 Personal history of pulmonary embolism; Z86.718 Personal history of other venous thrombosis and embolism; Z88.0 Allergy status to penicillin; Z90.49 Acquired absence of other specified parts of digestive tract; Z90.710 Acquired absence of both cervix and uterus
CPT/HCPCS: 81001; 99283

== ENCOUNTER 2017-04-22 21:35 | Emergency (ER) | payer MEDICAID, OTHER ==
[2017-04-22] MEDS ORDERED: DIPHENHYDRAMINE HCL 50 MG/ML VIAL IV ONE (23:31)
[2017-04-22] MEDS ORDERED: METOCLOPRAMIDE HCL INJ/PF 10 MG/2 ML SDV IV ONE (23:31)
[2017-04-22] MEDS ORDERED: NORMAL SALINE 1000 ML 1,000 ML IV ONE (23:31)
[2017-04-22] MEDS ORDERED: HYDROCODONE/ACETAMINOPHEN 5-325 MG TABLET PO ONE (23:35)
[2017-04-22] MEDS ORDERED: ONDANSETRON 4 MG TAB.RAPDIS PO ONE (23:35)
--- NOTE | 2017-04-22 23:37 | ER Document Report ---
ED Medical Screen (RME) - General Chief Complaint: Headache Stated Complaint: HEAD PAIN Time Seen by Provider: 04/22/17 23:22 Notes: 42-year-old female, chief complaint of ongoing headaches, scheduled for an MRI which could not happen because of her insurance, states pain is sharp, left oriental orthodox area, intermittently worse. Tried Fioricet at home without any improvement. Also on Lyrica. Has had 3 lumbar punctures for this already. Denies head injury, fever, reports some nausea, denies vomiting. Denies neck pain. TRAVEL OUTSIDE OF THE [place] IN LAST 30 DAYS: No - Related Data Allergies/Adverse Reactions: Penicillins Allergy (Mild, Verified 04/22/17 22:02) Hives Past Medical History - Past Medical History Cardiac Medical History: Reports: Hx Atrial Fibrillation - SVT, Hx DVT, Hx Pulmonary Embolism Pulmonary Medical History: Reports: Hx Bronchitis, Hx Pneumonia Neurological Medical History: Reports: Hx Migraine. Denies: Hx Seizures Endocrine Medical History: Reports: Hx Diabetes Mellitus Type 2 Renal/ Medical History: Reports: Hx Kidney Stones, Hx Ovarian Cysts. Denies: Hx Peritoneal Dialysis Malignancy Medical History: Reports: Hx Skin Cancer GI Medical History: Reports: Hx Gastroesophageal Reflux Disease, Hx Irritable Bowel Musculoskeltal Medical History: Reports Hx Arthritis, Reports Hx Multiple Sclerosis Psychiatric Medical History: Reports: Hx Anxiety, Hx Depression Traumatic Medical History: Reports: Hx Fractures Past Surgical History: Reports: Hx Section - x2, Hx Cholecystectomy, Hx Hysterectomy - Immunizations Immunizations up to date: Yes Hx Diphtheria, Pertussis, Tetanus Vaccination: Yes Physical Exam - General General appearance: Other - Appears mildly uncomfortable, rubbing her eyes and her headache, does not appear to be in any distress - Neurological Neuro grossly intact: Yes Cognition: Normal Orientation: AAOx4 [place] Coma Scale Eye Opening: Spontaneous [place] Coma Scale Verbal: Oriented Kenneth Coma Scale Motor: Obeys Commands Kenneth Coma Scale Total: 15 Speech: Normal Cranial nerves: Normal Motor strength normal: LUE, RUE, LLE, RLE Course - Re-evaluation Re-evalutation: 04/22/17 23:37 I have greeted and performed a rapid initial assessment of this patient. A comprehensive ED assessment and evaluation of the patient, analysis of test results and completion of the medical decision making process will be conducted by additional ED providers.
--- NOTE | 2017-04-23 02:25 | ER Document Report ---
ED General - General Mode of Arrival: Ambulatory Information source: Patient TRAVEL OUTSIDE OF THE [place] IN LAST 30 DAYS: No - HPI Onset: Other - Refer to HPI notes Similar symptoms previously: Yes Recently seen / treated by doctor: Yes - General Chief Complaint: Headache Stated Complaint: HEAD PAIN Time Seen by Provider: 04/22/17 23:22 Notes: Patient is a 42-year old female presenting to the emergency department for ongoing headaches. Patient has had these headaches/facial pain for about 2 years now but they have progressed recently. Patient has pain from her left scientology area that radiates down into her left cheek and to her nose. Patient also complains of some nausea. Patient also states she has some "bulging" and swelling to the left side of her head. Patient has also recently been treated for Lyme's disease and Hickox Spotted Fever with 8 weeks of doxycycline. Patient also complains of some numbness and tingling. Patient states her headaches are waxing and waning but his particular episode has lasted for about 2 days now. Patient denies any injury, fever, vomiting, or neck pain. Patient was being followed by Dr. Aceves, neurology, and has an appointment in June with a neurologist at [facility]. Patient also has multiple sclerosis. Patient states she tried Fioricet at home without improvement. Patient also takes Lyrica. Patient has had 1 MRI and was scheduled for another MRI on Friday but her insurance would not cover the scan. Patient has had 3 lumbar punctures for these headaches already. Patient has a family history of aneurysms. Patient is allergic to penicillins. (ROBERT FAN) - Related Data Allergies/Adverse Reactions: Penicillins Allergy (Mild, Verified 04/22/17 22:02) Cynthia Past Medical History - General Information source: Patient - Social History Smoking Status: Never Smoker Cigarette use (# per day): No Chew tobacco use (# tins/day): No Smoking Education Provided: No Frequency of alcohol use: None Drug Abuse: None Family History: CAD - Past Medical History Cardiac Medical History: Reports: Hx Atrial Fibrillation - SVT, Hx DVT, Hx Pulmonary Embolism Pulmonary Medical History: Reports: Hx Bronchitis, Hx Pneumonia Neurological Medical History: Reports: Hx Migraine Endocrine Medical History: Reports: Hx Diabetes Mellitus Type 2 Renal/ Medical History: Reports: Hx Kidney Stones, Hx Ovarian Cysts Malignancy Medical History: Reports: Hx Skin Cancer GI Medical History: Reports: Hx Gastroesophageal Reflux Disease, Hx Irritable Bowel Musculoskeltal Medical History: Reports Hx Arthritis, Reports Hx Multiple Sclerosis Psychiatric Medical History: Reports: Hx Anxiety, Hx Depression Traumatic Medical History: Reports: Hx Fractures Past Surgical History: Reports: Hx Section - x2, Hx Cholecystectomy, Hx Hysterectomy - Immunizations Immunizations up to date: Yes Hx Diphtheria, Pertussis, Tetanus Vaccination: Yes Review of Systems - Review of Systems Constitutional: No symptoms reported EENT: No symptoms reported Cardiovascular: No symptoms reported Respiratory: No symptoms reported Gastrointestinal: No symptoms reported Genitourinary: No symptoms reported Female Genitourinary: No symptoms reported Musculoskeletal: No symptoms reported Skin: See HPI Hematologic/Lymphatic: No symptoms reported Neurological/Psychological: See HPI, Headaches -: Yes All other systems reviewed and negative Physical Exam - Vital signs Vitals: Temp Pulse Resp BP Pulse Ox 98.2 F 106 H 18 109/67 90 L 04/22/17 22:03 04/22/17 22:03 04/22/17 22:03 04/22/17 22:03 04/22/17 22:03 - Notes Notes: GENERAL: Alert, interacts well. No acute distress. HEAD: Normocephalic, atraumatic. No tenderness or swelling over the left temporal artery. Pain is not triggered by percussion of the left parietal scalp. No vesicular rash seen. EYES: Pupils equal, round, and reactive to light. Extraocular movements intact. ENT: Oral mucosa moist, tongue midline. Nares patent, no nasal septal hematoma, TM's intacts. NECK: Full range of motion. Supple. Trachea midline. LUNGS: Clear to auscultation bilaterally, no wheezes, rales, or rhonchi. No respiratory distress. HEART: Regular rate and rhythm. No murmurs, gallops, or rubs. ABDOMEN: Soft, non-tender. Non-distended. Bowel sounds present in all 4 quadrants. EXTREMITIES: Moves all 4 extremities spontaneously. No edema, radial pulses 2/4 bilaterally. No cyanosis. NEUROLOGICAL: Alert and oriented x3. Normal speech. Decreased sensation to the left side consistent with patient's history. Cranial nerves II through XII grossly intact. Biceps and patellar DTRs 2+ bilaterally. PSYCH: Normal affect, normal mood. SKIN: Warm, dry, normal turgor. No rashes or lesions noted. (ROBERT FAN) Course - Re-evaluation Re-evalutation: 04/23/17 02:27 Pain patient is having a similar pain she has been having intermittently for 2 years although it is worsening. There is nothing new about this pain, there are no signs of stroke, patient's symptoms are consistent with trigeminal neuralgia particularly affecting the V2 nerve distribution. Patient is encouraged to continue taking her Lyrica as directed though she admits noncompliance with medication. Patient states she cannot take Neurontin because it makes it difficult for her to get out of bed. Discussed with patient that we can try a steroid taper which may help with some of her symptoms however she needs to follow-up with neurology as an outpatient. (DEVORAH REYES) - Vital Signs Vital signs: Temp Pulse Resp BP Pulse Ox 98.2 F 106 H 18 109/67 90 L 04/22/17 22:03 04/22/17 22:03 04/22/17 22:03 04/22/17 22:03 04/22/17 22:03 Discharge - Discharge Clinical Impression: Left-sided trigeminal neuralgia Condition: Stable Disposition: HOME, SELF-CARE Additional Instructions: Trigeminal Neuralgia Trigeminal neuralgia is sharp, intermittent pain in the face. It's one- sided, and can involve forehead, cheek, jaw, or all three. Usually the pain occurs abruptly, lasts a few seconds, goes away, then comes back in a minute or so. Touching a "trigger zone" can provoke an attack. Trigeminal neuralgia is considered a "nerve seizure." Sometimes we can find a treatable cause, such as nerve irritation, tumor, infection, or poor blood flow to the nerve. When attacks are severe or occur frequently, we try anti seizure medicine. Call the doctor if there are new symptoms, such as loss of vision, weakness , numbness of other areas, vomiting, or severe headache. Prescriptions: Prednisone [Sterapred Ds] 1 pkg PO ASDIR PRN 12 Days PRN Reason: Prednisone [Sterapred Ds] 1 pkg PO ASDIR PRN #1 [id number] PRN Reason: Referrals: KRISTEN CHU MD [Primary Care Provider] - Follow up in 1 week Scribe Attestation: 04/23/17 07:28 I personally performed the services described in the documentation, reviewed and edited the documentation which was dictated to the scribe in my presence, and it accurately records my words and actions. (DEVORAH REYES) Scribe Documentation - Scribe Written by Maryellen:: Maryellen Gaspar, 04/23/2017 acting as scribe for :: Irma
[2017-04-23] MEDS ORDERED: PREDNISONE 20 MG TABLET PO ONE (02:27)
[2017-04-23 07:34] VITALS: BP 116/83
== END 2017-04-23 03:30 | disposition home or self-care (01) ==
LOC: ER 21:35
DX: G50.0 Trigeminal neuralgia (principal); I48.91 Unspecified atrial fibrillation; Z88.0 Allergy status to penicillin; Z91.14 Patient's other noncompliance with medication regimen; Z90.49 Acquired absence of other specified parts of digestive tract; Z90.710 Acquired absence of both cervix and uterus; Z87.442 Personal history of urinary calculi; Z85.828 Personal history of other malignant neoplasm of skin; Z86.718 Personal history of other venous thrombosis and embolism; Z86.711 Personal history of pulmonary embolism
CPT/HCPCS: 99283; S0119; J7512

== ENCOUNTER → 2017-05-13 | Outpatient (CLI) | payer OTHER | LOC: RAD 14:55 | PROVIDERS: ATTEND Psychiatry & Neurology Neurology | DX: G50.0 Trigeminal neuralgia (principal); Z53.8 Procedure and treatment not carried out for other reasons ==

== ENCOUNTER 2017-06-05 07:03 | Emergency (ER) | payer OTHER ==
[2017-06-05] MEDS ORDERED: NORMAL SALINE 1000 ML 1,000 ML IV ONE (08:12)
[2017-06-05] MEDS ORDERED: HYDROMORPHONE HCL INJ/PF 2 MG/ML AMPULE IV ONE ×2 (08:12→11:03)
[2017-06-05 08:44] LABS: ABSOLUTE EOSINOPHILS # (AUTO) 0.1 10^3/uL (0.0-0.6); ABSOLUTE LYMPHOCYTES (AUTO) 1.8 10^3/uL (0.5-4.7); ABSOLUTE MONOCYTES (AUTO) 0.5 10^3/uL (0.1-1.4); ABSOLUTE NEUT (AUTO) 3.9 10^3/uL (1.7-8.2); BASOPHILS % (AUTO) 0.8 % (0-2); EOSINOPHILS % (AUTO) 1.7 % (0-6); HEMATOCRIT 38.4 % (36.0-47.0); HEMOGLOBIN 13.2 g/dL (12.0-15.5); HGB HCT DIFFERENCE 1.2; LYMPHOCYTES % (AUTO) 27.6 % (13-45); MEAN CORPUSCULAR HEMOGLOBIN 32.9 pg (27.0-33.4); MEAN CORPUSCULAR HGB CONC 34.4 g/dL (32.0-36.0); MEAN CORPUSCULAR VOLUME 96 fl (80-97); MONOCYTES % (AUTO) 8.4 % (3-13); RED BLOOD COUNT 4.01 10^6/uL (3.72-5.28); RED CELL DISTRIBUTION WIDTH 14.3 % (11.5-14.0); SEGMENTED NEUTROPHILS % (AUTO) 61.5 % (42-78); WHITE BLOOD COUNT 6.4 10^3/uL (4.0-10.5)
[2017-06-05 09:17] LABS: ALANINE AMINOTRANSFERASE 20 U/L (9-52); ALBUMIN 4.1 g/dL (3.5-5.0); ALKALINE PHOSPHATASE 52 U/L (38-126); ANION GAP 9 (5-19); ASPARTATE AMINO TRANSFERASE 17 U/L (14-36); BILIRUBIN,DIRECT 0.4 mg/dL (0.0-0.4); BILIRUBIN,TOTAL 0.4 mg/dL (0.2-1.3); BLOOD UREA NITROGEN 6 mg/dL (7-20); CALCIUM 9.4 mg/dL (8.4-10.2); CARBON DIOXIDE 27 mmol/L (22-30); CHLORIDE 106 mmol/L (98-107); GLUCOSE 80 mg/dL (75-110); POTASSIUM 4.3 mmol/L (3.6-5.0); SODIUM 142.1 mmol/L (137-145); TOTAL PROTEIN 6.7 g/dL (6.3-8.2)
[2017-06-05 09:21] LABS: C-REACTIVE PROTEIN < 5.0 mg/L (<10.0)
[2017-06-05 09:22] LABS: ERYTHROCYTE SEDIMENTATION RATE 17 mm/hr (0-20)
[2017-06-05 10:22] LABS: AMORPHOUS SEDIMENT,URINE TRACE /HPF; APPEARANCE,URINE SLIGHTLY-CLOUDY; BILIRUBIN,URINE NEGATIVE (NEGATIVE); GLUCOSE, URINE NEGATIVE (NEGATIVE); KETONES,URINE NEGATIVE (NEGATIVE); LEUKOCYTE ESTERASE,URINE NEGATIVE (NEGATIVE); NITRITE,URINE NEGATIVE (NEGATIVE); PROTEIN,URINE NEGATIVE (NEGATIVE); URINE SPECIFIC GRAVITY 1.003; UROBILINOGEN,URINE NEGATIVE mg/dL (<2.0)
[2017-06-05] MEDS ORDERED: ONDANSETRON HCL INJ/PF 4 MG/2 ML SDV IV ONE (11:14)
--- NOTE | 2017-06-05 11:20 | RADIOLOGY REPORT (SQ) ---
EXAM DESCRIPTION: MRI LUMBAR SPINE COMBO COMPLETED DATE/TIME: 06/05/2017 10:31 am REASON FOR STUDY: back injury, numbness, loss of bladd/bowel COMPARISON: Lumbar puncture under fluoroscopy 11/21/2016 MRI lumbar spine 02/05/2016, 05/04/2015, 08/19/2013, 03/12/2012, 02/06/2007 TECHNIQUE: Sagittal and Axial imaging includes T1, T1 post gadolinium, T2, STIR and gradient echo se quences. Coronal T2/HASTE imaging. CONTRAST TYPE AND DOSE: 10 mL Multihance. RENAL FUNCTION: GFR > 60. LIMITATIONS: None. FINDINGS: VISUALIZED UPPER ABDOMEN: Limited evaluation. No acute or suspicious findings suggested. SEGMENTATION: No transitional anatomy. The lowest well-developed disc space is labeled L5-S1. ALIGNMENT: Anatomic. VERTEBRAE: Intact. No fractures. BONE MARROW: Normal. No marrow replacement or reactive changes. DISC SIGNAL: Decreased T2 weighted intervertebral disc signal at L4-5 and L5-S1 POSTERIOR ELEMENTS: Generally intact. No pars defect evident. HARDWARE: None in the spine. CORD AND CONUS: Normal in size and signal intensity. Conus at the L1-2 level. At the upper edge of the field of view on today's study, a well-circumscribed intradural extra medull he nodule is present along the rightward posterior spinal canal at the level of the T10-11 disc. Th is nodule is isointense to the spinal cord on T2 and T1 precontrast images, and has avid gadolinium enhancement. This nodule measures 7 mm AP x 5 mm transverse x 6 mm craniocaudad, best shown on postc ontrast sagittal series 7, image 6, and coronal postcontrast series 8, image 10. This most likely represents a small schwannoma or neurofibroma. Meningioma is also possible. Prior multiple studies were reviewed, classically this area is not included in lumbar MR studies. This ar ea was not covered on the previous exams. These findings were discussed with Dia Baltazar in the emergency room. SOFT TISSUES: No aortic aneurysm seen. No bulky retroperitoneal adenopathy or mass. No paraspinal mas s or fluid. T10-11: There is mild bilateral facet hypertrophy without significant central or foraminal encroachm ent. No abnormal thoracic cord intrinsic signal or enhancement at this level. Small intradural extr a medullary nodule, likely a small neurofibroma or schwannoma as discussed above. T11-12: Unremarkable T12-L1: Unremarkable L1-L2: No significant spinal stenosis or exit foraminal stenosis. Very mild bilateral facet hypertro phy L2-L3: No significant spinal stenosis or exit foraminal stenosis. Very mild bilateral facet and liga ment hypertrophy L3-L4: Minimal posterior disc bulge, mild bilateral facet and ligament hypertrophy. No central or fo raminal stenosis. L4-L5: Small central posterior annular tear exhibiting minimal contrast enhancement, best shown on ax ial T2 image 24 and sagittal T2 image 7. This effaces the ventral epidural fat and abuts the thecal sac at the takeoff of the bilateral L5 nerve roots in the lateral recess without significant mass eff ect. Borderline central canal narrowing. No significant foraminal narrowing. These changes are bes t shown on axial T2 images 21-25. L5-S1: Broad diffuse posterior disc bulging with a central disc bulge, effaces the ventral epidural f at and abuts the thecal sac near the takeoff of the bilateral S1 nerve roots in the lateral recess. No significant mass effect on the bilateral S1 nerve roots or exiting L5 nerve roots. Mild bilateral inferior foraminal narrowing is present. SACRUM: Visualized upper sacrum intact. IMPRESSION: Posterior disc bulging at L4-5 and L5-SF 1 without high-grade central or foraminal steno sis. These findings are similar compared to previous MRI exams. Incidental finding of at 7 x 5 x 6 mm well-circumscribed brightly enhancing intradural extra medullar y nodule on the right at the T10-11 level. This most likely represents a small schwannoma or neurofi broma. TECHNICAL DOCUMENTATION: JOB ID: [id number] [employer]- All Rights Reserved
[2017-06-05 11:48] VITALS: BP 109/71
--- NOTE | 2017-06-05 12:43 | ER Document Report ---
ED Extremity Problem, Lower - General Chief Complaint: Back Pain Stated Complaint: LOWER BACK AND LEG PAIN Time Seen by Provider: 06/05/17 08:07 Mode of Arrival: Ambulatory Information source: Patient Notes: Patient is a 42-year-old multiple sclerosis patient with a history of herniated disks who presents to the ER today for low back pain after lifting and throwing trash into the dumpster yesterday afternoon. Patient states that she just thought it was her normal herniated disks and so she went home, treated with the pain medicine she has at home, however over the night she states that at 2 AM and 4 AM she had bowel movements on herself that she did not realize she was having and urinated on herself as well. She states that she is urinating when she is walking. She admits to numbness down the right leg worse than the left but also pain down both legs. She states a neurologist in [facility], Dr. Chau. TRAVEL OUTSIDE OF THE [place] IN LAST 30 DAYS: No - Related Data Allergies/Adverse Reactions: Penicillins Allergy (Mild, Verified 04/22/17 22:02) Hives Past Medical History - General Information source: Patient - Social History Smoking Status: Current Every Day Smoker Family History: CAD Patient has suicidal ideation: No Patient has homicidal ideation: No - Past Medical History Cardiac Medical History: Reports: Hx Atrial Fibrillation - SVT, Hx DVT, Hx Pulmonary Embolism Pulmonary Medical History: Reports: Hx Bronchitis, Hx Pneumonia Neurological Medical History: Reports: Hx Migraine. Denies: Hx Seizures Endocrine Medical History: Reports: Hx Diabetes Mellitus Type 2 Renal/ Medical History: Reports: Hx Kidney Stones, Hx Ovarian Cysts. Denies: Hx Peritoneal Dialysis Malignancy Medical History: Reports: Hx Skin Cancer GI Medical History: Reports: Hx Gastroesophageal Reflux Disease, Hx Irritable Bowel Musculoskeltal Medical History: Reports Hx Arthritis, Reports Hx Multiple Sclerosis Psychiatric Medical History: Reports: Hx Anxiety, Hx Depression Traumatic Medical History: Reports: Hx Fractures Past Surgical History: Reports: Hx Section - x2, Hx Cholecystectomy, Hx Hysterectomy - Immunizations Immunizations up to date: Yes Hx Diphtheria, Pertussis, Tetanus Vaccination: Yes Review of Systems - Review of Systems Constitutional: No symptoms reported EENT: No symptoms reported Cardiovascular: No symptoms reported Respiratory: No symptoms reported Gastrointestinal: No symptoms reported Genitourinary: No symptoms reported Female Genitourinary: No symptoms reported Musculoskeletal: See HPI Skin: No symptoms reported Hematologic/Lymphatic: No symptoms reported Neurological/Psychological: See HPI Physical Exam - Vital signs Vitals: Temp Pulse Resp BP Pulse Ox 98.5 F 75 16 126/74 H 98 06/05/17 07:21 06/05/17 07:21 06/05/17 07:21 06/05/17 07:21 06/05/17 07:21 - Notes Notes: PHYSICAL EXAMINATION: GENERAL: Uncomfortable appearing, but in no acute distress. HEAD: Atraumatic, normocephalic. EYES: Pupils equal round and reactive to light, extraocular movements intact, sclera anicteric, conjunctiva are normal. NECK: Normal range of motion, supple without lymphadenopathy LUNGS: CTAB and equal. No wheezes rales or rhonchi. HEART: Regular rate and rhythm without murmurs ABDOMEN: Soft, no tenderness. No guarding, no rebound BACK: lumbar vertebral tenderness, normal ROM, normal ambulation rectal: normal tone, decreased sensation GI/: no CVA tenderness EXTREMITIES: Normal range of motion, no pitting edema. No cyanosis. NEUROLOGICAL: decreased sensory exams to right lower extremity, Cranial nerves grossly intact. PSYCH: Normal mood, normal affect. SKIN: Warm, Dry, normal turgor, no rashes or lesions noted Course - Re-evaluation Re-evalutation: 06/05/17 16:20 Patient's lab work is unremarkable including a normal sed rate and CRP, MRI was immediately ordered to rule out cauda equina syndrome, does report patient's chronic herniated disks that appear unchanged, no cord compression or evidence of cauda equina on MRI. Radiologist does report a possible schwannoma or neurofibroma to T10-11. Patient's neurologist, Dr. Chau, was consulted twice during this visit, initially wanted MRI of the head with contrast to rule out acute MS flare, however, Pt could not tolerate MRI due to left ear pain radiating down face. Pt had this during the lumbar MRI, but "cried and delt with it." She could not deal with it during MRI head so they cancelled it. manufacturing tech told me that she had something metal in or around her ear and that's what was causing pain on imaging with MRI. Pt's ear was irrigated and large metal ball earring was removed. She had no idea that was in there. Radiologist recommends doing MRI with contrast another day now as she's already had MRI with contrast of lumbar spine today and can't have contrast again. Dr. Chau is fine with her being discharged today and doing MRI/MRA of the head outpatient as patient is showing no signs of acute MS flare today. Clinically patient has walked to and from the bathroom multiple times without any difficulty or assistance. She has not asked for pain medicine in a few hours. - Vital Signs Vital signs: Temp Pulse Resp BP Pulse Ox 97.7 F 61 16 109/71 95 06/05/17 11:46 06/05/17 11:46 06/05/17 07:22 06/05/17 11:46 06/05/17 11:46 - Laboratory Result Diagrams: 06/05/17 08:30 06/05/17 08:30 Laboratory results interpreted by me: 06/05/17 06/05/17 08:30 08:30 RDW 14.3 H BUN 6 L Critical Care Note - Critical Care Note Total time excluding time spent on procedures (mins): 50 - 50___ minutes spent in critical care time with patient, consulted with attending, speaking with family, placing orders and evaluating tests and labs. Discharge - Discharge Clinical Impression: Multiple sclerosis Low back pain Qualifiers: Chronicity: acute Back pain laterality: bilateral Sciatica presence: with sciatica Sciatica laterality: sciatica of right side Qualified Code(s): M54.41 - Lumbago with sciatica, right side Condition: Stable Disposition: HOME, SELF-CARE Additional Instructions: Return immediately for any new or worsening symptoms. Follow up with Dr. Chau, call tomorrow to make followup appointment. Prescriptions: Hydrocodone/Acetaminophen [Hudson 5-325 mg Tablet] 1 tab PO Q4 PRN #12 tablet PRN Reason: Methocarbamol [Robaxin 500 mg Tablet] 1,000 mg PO BID PRN #40 tablet PRN Reason: Prednisone 10 mg PO ASDIR PRN #1 tab.ds.pk PRN Reason: Forms: Return to Work
--- NOTE | 2017-06-05 21:23 | EKG REPORT ---
SEVERITY:- NORMAL ECG - SINUS RHYTHM : Confirmed by: Javid Guidry 05-Jun-2017 21:21:38
== END 2017-06-05 15:37 | disposition home or self-care (01) ==
LOC: ER 07:03
DX: G35 Multiple sclerosis (principal); M54.41 Lumbago with sciatica, right side; M54.9 Dorsalgia, unspecified; M54.5 Low back pain; M79.604 Pain in right leg; F17.200 Nicotine dependence, unspecified, uncomplicated
CPT/HCPCS: 93005; 96376; 99285; 96374; 96375; 36415; 85025; 85652; 86140; 80053; 81001; 72158; 93010; A9577; J1170; J2405; J7030

== ENCOUNTER 2017-08-03 16:38 | Emergency (ER) | payer OTHER ==
[2017-08-03] MEDS ORDERED: OXYCODONE-ACETAMINOPHEN 5-325 MG TABLET PO ONE (16:56)
[2017-08-03] MEDS ORDERED: ONDANSETRON 4 MG TAB.RAPDIS PO ONE (16:56)
--- NOTE | 2017-08-03 16:58 | ER Document Report ---
ED Medical Screen (RME) - General Chief Complaint: Arm Problem Stated Complaint: ARM PAIN Time Seen by Provider: 08/03/17 16:51 Notes: This 42-year-old female patient comes emergency room for painful swelling and redness to the right dorsal radial forearm. 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 She was discharged from the hospital today. She was receiving IV Cipro and another unknown antibiotic. After she was discharged she noted the pain in her arm getting worse and swelling and redness developing. Brief exam shows erythema to the dorsal radial forearm, warm, tender, with a very tender cordlike structure coursing under the skin consistent with a phlebitis. I have greeted and performed a rapid initial assessment of this patient. A comprehensive ED assessment and evaluation of the patient, analysis of test results and completion of the medical decision making process will be conducted by additional ED providers. TRAVEL OUTSIDE OF THE [place] IN LAST 30 DAYS: No - Related Data Allergies/Adverse Reactions: Penicillins Allergy (Mild, Verified 08/03/17 16:47) Hives Past Medical History - Past Medical History Cardiac Medical History: Reports: Hx Atrial Fibrillation - SVT, Hx DVT, Hx Pulmonary Embolism Pulmonary Medical History: Reports: Hx Bronchitis, Hx Pneumonia Neurological Medical History: Reports: Hx Migraine. Denies: Hx Seizures Endocrine Medical History: Reports: Hx Diabetes Mellitus Type 2 Renal/ Medical History: Reports: Hx Kidney Stones, Hx Ovarian Cysts. Denies: Hx Peritoneal Dialysis Malignancy Medical History: Reports: Hx Skin Cancer GI Medical History: Reports: Hx Gastroesophageal Reflux Disease, Hx Irritable Bowel Musculoskeltal Medical History: Reports Hx Arthritis, Reports Hx Multiple Sclerosis Psychiatric Medical History: Reports: Hx Anxiety, Hx Depression Traumatic Medical History: Reports: Hx Fractures Past Surgical History: Reports: Hx Section - x2, Hx Cholecystectomy, Hx Hysterectomy - Immunizations Immunizations up to date: Yes Hx Diphtheria, Pertussis, Tetanus Vaccination: Yes Physical Exam - Vital signs Vitals: Temp Pulse Resp BP Pulse Ox 99.1 F 100 20 118/64 97 08/03/17 16:47 08/03/17 16:47 08/03/17 16:47 08/03/17 16:47 08/03/17 16:47 Course - Vital Signs Vital signs: Temp Pulse Resp BP Pulse Ox 99.1 F 100 20 118/64 97 08/03/17 16:47 08/03/17 16:47 08/03/17 16:47 08/03/17 16:47 08/03/17 16:47
[2017-08-03 17:40] LABS: ABSOLUTE BASOPHILS # (AUTO) 0.1 10^3/uL (0.0-0.2); ABSOLUTE EOSINOPHILS # (AUTO) 0.2 10^3/uL (0.0-0.6); ABSOLUTE LYMPHOCYTES (AUTO) 1.7 10^3/uL (0.5-4.7); ABSOLUTE MONOCYTES (AUTO) 0.7 10^3/uL (0.1-1.4); ABSOLUTE NEUT (AUTO) 6.1 10^3/uL (1.7-8.2); BASOPHILS % (AUTO) 0.6 % (0-2); HEMATOCRIT 35.8 % (36.0-47.0); HEMOGLOBIN 12.4 g/dL (12.0-15.5); HGB HCT DIFFERENCE 1.4; LYMPHOCYTES % (AUTO) 19.1 % (13-45); MEAN CORPUSCULAR HEMOGLOBIN 33.5 pg (27.0-33.4); MEAN CORPUSCULAR HGB CONC 34.6 g/dL (32.0-36.0); MEAN CORPUSCULAR VOLUME 97 fl (80-97); MONOCYTES % (AUTO) 8.3 % (3-13); RED CELL DISTRIBUTION WIDTH 13.4 % (11.5-14.0); WHITE BLOOD COUNT 8.7 10^3/uL (4.0-10.5)
[2017-08-03] MEDS ORDERED: IBUPROFEN 600 MG TABLET PO ONE (17:42)
--- NOTE | 2017-08-03 17:42 | ER Document Report ---
ED Extremity Problem, Upper - General Chief Complaint: Arm Problem Stated Complaint: ARM PAIN Time Seen by Provider: 08/03/17 16:51 Notes: The patient is a 42-year-old female who presents with mild swelling and pain of her right forearm where she had an IV placed for the past 3 days after a back surgery. She was receiving Cipro and pain medicine through the IV. She was discharged yesterday. Denies numbness, tingling, open wounds or rash anywhere else. TRAVEL OUTSIDE OF THE [place] IN LAST 30 DAYS: No - Related Data Allergies/Adverse Reactions: Penicillins Allergy (Mild, Verified 08/03/17 16:47) Hives Past Medical History - General Information source: Patient - Social History Smoking Status: Current Every Day Smoker Chew tobacco use (# tins/day): No Frequency of alcohol use: None Drug Abuse: None Family History: CAD - Past Medical History Cardiac Medical History: Reports: Hx Atrial Fibrillation - SVT, Hx DVT, Hx Pulmonary Embolism Pulmonary Medical History: Reports: Hx Bronchitis, Hx Pneumonia Neurological Medical History: Reports: Hx Migraine. Denies: Hx Seizures Endocrine Medical History: Reports: Hx Diabetes Mellitus Type 2 Renal/ Medical History: Reports: Hx Kidney Stones, Hx Ovarian Cysts. Denies: Hx Peritoneal Dialysis Malignancy Medical History: Reports: Hx Skin Cancer GI Medical History: Reports: Hx Gastroesophageal Reflux Disease, Hx Irritable Bowel Musculoskeltal Medical History: Reports Hx Arthritis, Reports Hx Multiple Sclerosis Psychiatric Medical History: Reports: Hx Anxiety, Hx Depression Traumatic Medical History: Reports: Hx Fractures Past Surgical History: Reports: Hx Section - x2, Hx Cholecystectomy, Hx Hysterectomy, Hx Orthopedic Surgery - Tumor removed from spine - Immunizations Immunizations up to date: Yes Hx Diphtheria, Pertussis, Tetanus Vaccination: Yes Review of Systems - Review of Systems Notes: REVIEW OF SYSTEMS: CONSTITUTIONAL: -fevers, -chills EENT: -eye pain, -difficulty swallowing, -nasal congestion CARDIOVASCULAR:-chest pain, -syncope. RESPIRATORY: -cough, -SOB GASTROINTESTINAL: -abdominal pain, -nausea, -vomiting, -diarrhea GENITOURINARY: -dysuria, -hematuria MUSCULOSKELETAL: +right forearm pain, -back pain, -neck pain SKIN: -rash or skin lesions. HEMATOLOGIC: -easy bruising or bleeding. LYMPHATIC: -swollen, enlarged glands. NEUROLOGICAL: -altered mental status or loss of consciousness, -headache, - neurologic symptoms PSYCHIATRIC: -anxiety, -depression. ALL OTHER SYSTEMS REVIEWED AND NEGATIVE. Physical Exam - Vital signs Vitals: Temp Pulse Resp BP Pulse Ox 99.1 F 100 20 118/64 97 08/03/17 16:47 08/03/17 16:47 08/03/17 16:47 08/03/17 16:47 08/03/17 16:47 - Notes Notes: PHYSICAL EXAMINATION: GENERAL: Well-appearing, well-nourished and in no acute distress. HEAD: Atraumatic, normocephalic. EYES: Pupils equal round and reactive to light, extraocular movements intact, sclera anicteric, conjunctiva are normal. ENT: nares patent, oropharynx clear without exudates. Moist mucous membranes. NECK: Normal range of motion, supple without lymphadenopathy LUNGS: Breath sounds clear to auscultation bilaterally and equal. No wheezes rales or rhonchi. HEART: Regular rate and rhythm without murmurs ABDOMEN: Soft, nontender, normoactive bowel sounds. No guarding, no rebound. No masses appreciated. EXTREMITIES: Mild swelling of right forearm with erythema. No crepitus. Strong radial and ulnar pulses with brisk capillary refill. Sensation intact. NEUROLOGICAL: Cranial nerves grossly intact. Normal speech, normal gait. Normal sensory and motor exams. PSYCH: Normal mood, normal affect. Course - Re-evaluation Re-evalutation: Patient does not have any signs of compartment syndrome, cellulitis or necrotizing fasciitis. Her symptoms and US are consistent with superficial phlebitis due to recent IV placement during her surgery this week. No DVT. Will discharge patient home with aspirin and heating pads with follow-up at her primary care physician. - Vital Signs Vital signs: Temp Pulse Resp BP Pulse Ox 99.1 F 96 18 124/68 97 08/03/17 16:47 08/03/17 20:47 08/03/17 20:47 08/03/17 20:47 08/03/17 16:47 - Laboratory Result Diagrams: 08/03/17 17:22 08/03/17 17:22 Laboratory results interpreted by me: 08/03/17 08/03/17 17:22 17:22 RBC 3.70 L Hct 35.8 L MCH 33.5 H BUN 5 L AST 55 H ALT 72 H - Diagnostic Test Radiology reviewed: Image reviewed, Reports reviewed Radiology results interpreted by me: SWETHA US: No DVT. Right superficial cephalic vein thrombosis. Discharge - Discharge Clinical Impression: Superficial phlebitis of arm Condition: Stable Disposition: HOME, SELF-CARE Additional Instructions: Superficial Phlebitis You have superficial phlebitis. This is an inflammation of the small veins just under the skin. The phlebitis causes redness, warmth, and tenderness of the involved area. There is no risk of pulmonary embolism (blood clots travelling to the lung) from this type of phlebitis. The more serious type of phlebitis occurs when the large deep veins become clotted. Treatment usually is elevation of the involved extremity, local moist heat several times daily, and aspirin (or an antiinflammatory medication). It will take several days -- sometimes even a couple of weeks -- for the condition to get better. If you develop wide-spread swelling or deep pain in the extremity, chest pain or shortness of breath, you should call the doctor or go to the hospital emergency room immediately.
[2017-08-03 17:55] LABS: ALANINE AMINOTRANSFERASE 72 U/L (9-52); ALBUMIN 3.8 g/dL (3.5-5.0); ALKALINE PHOSPHATASE 68 U/L (38-126); ANION GAP 10 (5-19); ASPARTATE AMINO TRANSFERASE 55 U/L (14-36); BILIRUBIN,DIRECT 0.4 mg/dL (0.0-0.4); BILIRUBIN,TOTAL 0.4 mg/dL (0.2-1.3); BLOOD UREA NITROGEN 5 mg/dL (7-20); CARBON DIOXIDE 30 mmol/L (22-30); CHLORIDE 101 mmol/L (98-107); CREATININE RESULT 0.58 mg/dL (0.52-1.25); GLUCOSE 105 mg/dL (75-110); POTASSIUM 3.8 mmol/L (3.6-5.0); SODIUM 140.5 mmol/L (137-145); TOTAL PROTEIN 6.9 g/dL (6.3-8.2)
[2017-08-03] MEDS ORDERED: ASPIRIN 81 MG TABLET, CHEWABLE PO ONE (19:36)
[2017-08-03 21:30] VITALS: BP 124/68
--- NOTE | 2017-08-04 10:21 | XCELERA REPORT ---
[address] [address] Upper Extremity Venous Evaluation Name: FLAVIO BOYKIN Age: 42 yrs Gender: Female : 1975 Patient Status: Emergency Patient Location: ER Study Date: 08/03/2017 07:13 PM Procedure: Unilateral duplex scan of the right upper extremity veins was performed, including responses to compression and other maneuvers. Reason For Study: RUE swelling and pain, redness Ordering Physician: JUDSON IRAHETA Performed By: Doug Reardon Right Side Venous Evaluation Superficial phlebitis in the Cephalic vein. Otherwise normal vessel filling wall to wall, compression and augmentation as well as Colour flow down to the Forearm veins. Critical Findings Discussed with YVES Storm. Interpretation Summary No duplex evidence of DVT or obstruction in the right upper extremity. Phlebitis in the Cephalic vein. : JUDSON IRAHETA > Bhavesh Valdez
== END 2017-08-03 20:48 | disposition home or self-care (01) ==
LOC: ER 16:38
DX: I80.8 Phlebitis and thrombophlebitis of other sites (principal); M79.631 Pain in right forearm; M79.89 Other specified soft tissue disorders; F17.200 Nicotine dependence, unspecified, uncomplicated
CPT/HCPCS: 36415; 80053; 85025; 87040; 93971; 99284

== ENCOUNTER 2017-08-28 11:30 | Emergency (ER) | payer OTHER, MEDICAID ==
[2017-08-28] MEDS ORDERED: MORPHINE SULFATE 10 MG/ML INJ IV ONE (12:09)
[2017-08-28] MEDS ORDERED: NORMAL SALINE 1000 ML 1,000 ML IV ONE (12:09)
--- NOTE | 2017-08-28 12:09 | ER Document Report ---
ED General - General Chief Complaint: Shortness Of Breath Stated Complaint: FEVER POST OP PAIN Time Seen by Provider: 08/28/17 12:01 Information source: Patient Notes: 42-year-old female with past medical history including a "spine tumor removal" at [facility] on July 31 with subsequent readmission on the secondary according to the patient of a right arm DVT/pulmonary emboli with a pneumonia. Patient has been started on Eliquis and was given antibiotics which she completed. Patient states for the last 8-9 days she had felt short of breath, with some white abdominal "pressure". She denies any radiation. She states the pain is better when she lays down. She denies any and all chest pain , nausea, vomiting, fevers, dysuria, or diarrhea. Patient denies any runny nose , congestion, sore throat, or cough. She states a temperature of 100.0 maximum. TRAVEL OUTSIDE OF THE [place] IN LAST 30 DAYS: No - HPI Onset: Other - See above Onset/Duration: Gradual Quality of pain: Achy Severity: Moderate Pain Level: 1 Associated symptoms: Other - See above Exacerbated by: Other - See above Relieved by: Denies Similar symptoms previously: No Recently seen / treated by doctor: Yes - Related Data Allergies/Adverse Reactions: Penicillins Allergy (Mild, Verified 08/28/17 11:36) Hives Past Medical History - General Information source: Patient - Social History Smoking Status: Unknown if Ever Smoked Cigarette use (# per day): No Chew tobacco use (# tins/day): No Smoking Education Provided: No Frequency of alcohol use: None Drug Abuse: None Family History: CAD - Past Medical History Cardiac Medical History: Reports: Hx Atrial Fibrillation - SVT, Hx DVT, Hx Pulmonary Embolism Pulmonary Medical History: Reports: Hx Bronchitis, Hx Pneumonia Neurological Medical History: Reports: Hx Migraine. Denies: Hx Seizures Endocrine Medical History: Reports: Hx Diabetes Mellitus Type 2 Renal/ Medical History: Reports: Hx Kidney Stones, Hx Ovarian Cysts. Denies: Hx Peritoneal Dialysis Malignancy Medical History: Reports: Hx Skin Cancer GI Medical History: Reports: Hx Gastroesophageal Reflux Disease, Hx Irritable Bowel Musculoskeltal Medical History: Reports Hx Arthritis, Reports Hx Multiple Sclerosis Psychiatric Medical History: Reports: Hx Anxiety, Hx Depression Traumatic Medical History: Reports: Hx Fractures Past Surgical History: Reports: Hx Section - x2, Hx Cholecystectomy, Hx Hysterectomy, Hx Orthopedic Surgery - Tumor removed from spine - Immunizations Immunizations up to date: Yes Hx Diphtheria, Pertussis, Tetanus Vaccination: Yes Review of Systems - Review of Systems Constitutional: Fever. denies: Chills EENT: denies: Nose congestion, Nose discharge Cardiovascular: Heart racing. denies: Chest pain, Palpitations Respiratory: Short of breath. denies: Cough, Hurts to breathe, Hemoptysis Gastrointestinal: denies: Vomiting Genitourinary: denies: Dysuria Musculoskeletal: denies: Leg swelling Skin: Other - no hives. denies: Rash Neurological/Psychological: Other - no slurred speech -: Yes All other systems reviewed and negative Physical Exam - Vital signs Vitals: Temp Pulse Resp BP Pulse Ox 98.8 F 124 H 16 119/72 99 08/28/17 11:36 08/28/17 11:36 08/28/17 11:36 08/28/17 11:36 08/28/17 11:36 Notes: Reviewed vital signs and nursing note as charted by RN. CONSTITUTIONAL: Alert and oriented and responds appropriately to questions. Well -appearing; well-nourished HEAD: Normocephalic; atraumatic EYES: Sclerae non-icteric ENT: No rhinorrhea; moist mucous membranes; pharynx without lesions noted NECK: Supple without meningismus; non-tender CARD: Tachycardic and regular. No murmurs RESP: Normal chest excursion without splinting or tachypnea; breath sounds clear and equal bilaterally; extremely scant bilateral end expiratory wheezing without rales or rhonchi present ABD/GI: Normal bowel sounds; non-distended; soft, very mildly tender to the right upper and lower quadrants of the abdomen, no rebound, no guarding; no palpable organomegaly or masses BACK: The back appears normal and is non-tender to palpation, there is no CVA tenderness EXT: Normal ROM in all joints; non-tender to palpation; no cyanosis, no effusions, no edema SKIN: No acute lesions noted NEURO: Moves all extremities equally; Motor and sensory function intact PSYCH: The patient's mood and manner are appropriate. Grooming and personal hygiene are appropriate. Course - Re-evaluation Re-evalutation: 08/28/17 12:08 Given the history and physical examination I will perform a CT scan of the chest as well as the abdomen and pelvis to evaluate for possible enlargement of extension of the pulmonary emboli, recurrent or persistent pneumonia, or an acute intra-abdominal process. Liter of fluid pain medications have been started. 08/28/17 12:21 EKG shows a heart of 103, sinus tachycardia, normal axis, no obvious ST elevation or depression 08/28/17 13:33 Troponin and abdominal labs as recorded. Normal troponin. CTA of the chest shows no pulmonary emboli or infection. CT of the abdomen and pelvis shows an unremarkable appearing cystic structure in the ovarian region as well as some nonspecific bowel thickening. Patient has had no diarrhea or vomiting. No history of inflammatory bowel disease. She is uncertain whether her family has this disorder. 08/28/17 14:01 Patient's exam is improved. Vital signs are stable with a heart rate of 82. Patient does have insurance. I will provide gastroenterology follow-up for possible repeat evaluation and colonoscopy. I do not believe that the patient is having any infections requiring antibiotics at this time. - Vital Signs Vital signs: Temp Pulse Resp BP Pulse Ox 98.8 F 124 H 16 119/72 99 08/28/17 11:36 08/28/17 11:36 08/28/17 11:36 08/28/17 11:36 08/28/17 11:36 - Laboratory Result Diagrams: 08/28/17 12:20 08/28/17 12:20 Laboratory results interpreted by me: 08/28/17 12:20 Direct Bilirubin 0.5 H Discharge - Discharge Clinical Impression: Abdominal discomfort Condition: Good Disposition: HOME, SELF-CARE Additional Instructions: Come back immediately with any fevers, vomiting, diarrhea, rectal bleeding, change in location or quality of pain, or any other acute problems. Please make sure that you follow-up with the manager relationship as we have discussed. Referrals: FRANK SALMERON MD [Primary Care Provider] - Follow up as needed RUTH ANN SIMPSON MD [ACTIVE STAFF] - Follow up as needed
[2017-08-28 12:35] LABS: ABSOLUTE BASOPHILS # (AUTO) 0.1 10^3/uL (0.0-0.2); ABSOLUTE EOSINOPHILS # (AUTO) 0.2 10^3/uL (0.0-0.6); ABSOLUTE MONOCYTES (AUTO) 0.6 10^3/uL (0.1-1.4); ABSOLUTE NEUT (AUTO) 4.2 10^3/uL (1.7-8.2); BASOPHILS % (AUTO) 1.4 % (0-2); EOSINOPHILS % (AUTO) 2.8 % (0-6); HEMATOCRIT 38.4 % (36.0-47.0); HEMOGLOBIN 13.3 g/dL (12.0-15.5); HGB HCT DIFFERENCE 1.5; LYMPHOCYTES % (AUTO) 28.5 % (13-45); MEAN CORPUSCULAR HEMOGLOBIN 32.8 pg (27.0-33.4); MEAN CORPUSCULAR HGB CONC 34.7 g/dL (32.0-36.0); MEAN CORPUSCULAR VOLUME 95 fl (80-97); RED BLOOD COUNT 4.06 10^6/uL (3.72-5.28); RED CELL DISTRIBUTION WIDTH 13.4 % (11.5-14.0); SEGMENTED NEUTROPHILS % (AUTO) 59.3 % (42-78); WHITE BLOOD COUNT 7.1 10^3/uL (4.0-10.5)
--- NOTE | 2017-08-28 12:53 | RADIOLOGY REPORT (SQ) ---
EXAM DESCRIPTION: CHEST SINGLE VIEW COMPLETED DATE/TIME: 08/28/2017 12:41 pm REASON FOR STUDY: SOB COMPARISON: 08/18/2017 EXAM PARAMETERS: NUMBER OF VIEWS: One view. TECHNIQUE: Single frontal radiographic view of the chest acquired. RADIATION DOSE: NA LIMITATIONS: None. FINDINGS: LUNGS AND PLEURA: No opacities, masses or pneumothorax. No pleural effusion. MEDIASTINUM AND HILAR STRUCTURES: No masses. Contour normal. HEART AND VASCULAR STRUCTURES: Heart normal in size. Normal vasculature. BONES: No acute findings. HARDWARE: None in the chest. OTHER: No other significant finding. IMPRESSION: NO ACUTE RADIOGRAPHIC FINDING IN THE CHEST. TECHNICAL DOCUMENTATION: JOB ID: [id number] [employer]- All Rights Reserved
--- NOTE | 2017-08-28 13:14 | RADIOLOGY REPORT (SQ) ---
EXAM DESCRIPTION: CT ABD/PELVIS WITH IV ONLY COMPLETED DATE/TIME: 08/28/2017 12:47 pm REASON FOR STUDY: 5, right upper and lower abdominal pain COMPARISON: None. TECHNIQUE: CT scan of the abdomen and pelvis performed using helical scanning technique with dynamic intravenous contrast injection. No oral contrast. Images reviewed with lung, soft tissue, and bone windows. Reconstructed coronal and sagittal MPR images reviewed. Delayed images for evaluation of the urinary system also acquired. All images stored on PACS. All CT scanners at this facility use dose modulation, iterative reconstruction, and/or weight based d osing when appropriate to reduce radiation dose to as low as reasonably achievable (ALARA). [facility]: Dose Right [facility]: CareDose [facility]: Dose Right [facility]: Teradose 4D [facility]: [facility] CONTRAST TYPE AND DOSE: contrast/concentration: Isovue 370.00 mg/ml; Total Contrast Delivered: 65.0 ml; Total Saline Delivered: 100.0 ml RENAL FUNCTION: Creatinine 0.76 BUN 7 RADIATION DOSE: Up-to-date CT equipment and radiation dose reduction techniques were employed. CTDIv ol: 14.3 - 16.5 mGy. DLP: 1995 mGy-cm.. LIMITATIONS: None. FINDINGS: LOWER CHEST: See separate report of the CT of the chest. LIVER: Normal size. No masses. No dilated ducts. SPLEEN: Normal size. No focal lesions. PANCREAS: No masses. No significant calcifications. No adjacent inflammation or peripancreatic fluid collections. Pancreatic duct not dilated. GALLBLADDER: Surgically absent. ADRENAL GLANDS: No significant masses or asymmetry. RIGHT KIDNEY AND URETER: No solid masses. No significant calcifications. No hydronephrosis or hyd roureter. LEFT KIDNEY AND URETER: No solid masses. No significant calcifications. No hydronephrosis or hydr oureter. AORTA AND VESSELS: No aneurysm. No dissection. Renal arteries, SMA, celiac without stenosis. RETROPERITONEUM: No retroperitoneal adenopathy, hemorrhage or masses. BOWEL AND PERITONEAL CAVITY: There is questionable wall thickening versus mere nondistention of the a scending colon and segments of the transverse colon. APPENDIX: Normal. PELVIS: Urinary bladder is normal. Uterus is normal for age. There are couple left adnexal cysts th ere are less than 2 cm in diameter. ABDOMINAL WALL: No masses. No hernias. BONES: No significant or acute findings. OTHER: No other significant finding. IMPRESSION: 1. There appear to be 2 left ovarian cysts that are less than 2 cm in diameter. No fol low-up imaging recommended. 2. Questionable wall thickening in portions of the colon as described. Is there any clinical eviden ce of or history of inflammatory bowel disease? This could be merely secondary to nondistention. TECHNICAL DOCUMENTATION: JOB ID: [id number] Quality ID # [id number]: Final reports with documentation of one or more dose reduction techniques (e.g., Au tomated exposure control, adjustment of the mA and/or kV according to patient size, use of iterative reconstruction technique) 2010 [employer]- All Rights Reserved
[2017-08-28 13:17] LABS: ALANINE AMINOTRANSFERASE 26 U/L (9-52); ALBUMIN 4.6 g/dL (3.5-5.0); ALKALINE PHOSPHATASE 79 U/L (38-126); ANION GAP 14 (5-19); ASPARTATE AMINO TRANSFERASE 34 U/L (14-36); BILIRUBIN,DIRECT 0.5 mg/dL (0.0-0.4); BILIRUBIN,TOTAL 0.6 mg/dL (0.2-1.3); BLOOD UREA NITROGEN 7 mg/dL (7-20); CALCIUM 9.2 mg/dL (8.4-10.2); CARBON DIOXIDE 23 mmol/L (22-30); CHLORIDE 107 mmol/L (98-107); CREATININE RESULT 0.78 mg/dL (0.52-1.25); GLUCOSE 91 mg/dL (75-110); LIPASE 55.7 U/L (23-300); TOTAL PROTEIN 7.5 g/dL (6.3-8.2)
--- NOTE | 2017-08-28 13:22 | RADIOLOGY REPORT (SQ) ---
EXAM DESCRIPTION: CTA CHEST COMPLETED DATE/TIME: 08/28/2017 12:57 pm REASON FOR STUDY: 5, sob; recent history of pe COMPARISON: None. TECHNIQUE: CT scan of the chest performed using helical scanning technique with dynamic intravenous contrast injection. Images reviewed with lung, soft tissue and bone windows. Reconstructed coronal and sagittal MPR images reviewed. Additional 3 dimensional post-processing performed to develop Maximal Intensity Projection images (AL P). All images stored on PACS. All CT scanners at this facility use dose modulation, iterative reconstruction, and/or weight based d osing when appropriate to reduce radiation dose to as low as reasonably achievable (ALARA). [facility]: Dose Right [facility]: CareDose [facility]: Dose Right [facility]: Teradose 4D [facility]: Nevigo CONTRAST TYPE AND DOSE: 65 cc Isovue 370- low osmolar. Contrast bolus optimized for the pulmonary arteries. Not diagnostic for the aorta. RENAL FUNCTION: Creatinine 0.76 BUN 7 RADIATION DOSE: Total exam DLP: 1995 mGy cm. LIMITATIONS: None. FINDINGS: LUNGS AND PLEURA: No masses, infiltrates, pneumothorax. No pleural effusions, calcificati ons. AORTA AND GREAT VESSELS: No aneurysm. Contrast bolus not optimized for the aorta. HEART: No pericardial effusion. No significant coronary artery calcifications. PULMONARY ARTERIES: No emboli visualized in the main pulmonary arteries or the segmental branches. HILAR AND MEDIASTINAL STRUCTURES: No identified masses or abnormal nodes. HARDWARE: None in the chest. UPPER ABDOMEN: See separate report of the CT of the abdomen. THYROID AND OTHER SOFT TISSUES: No masses. No adenopathy. BONES: No acute or significant finding. 3D MIPS: Confirm above findings. OTHER: No other significant finding. IMPRESSION: NORMAL CTA OF THE CHEST. NO PULMONARY EMBOLI. COMMENT: Quality ID # [id number]: Final reports with documentation of one or more dose reduction techniques (e.g., Automated exposure control, adjustment of the mA and/or kV according to patient size, use of iterative reconstruction technique) TECHNICAL DOCUMENTATION: JOB ID: [id number]- All Rights Reserved
[2017-08-28 13:58] LABS: APPEARANCE,URINE SLIGHTLY-CLOUDY; BILIRUBIN,URINE NEGATIVE (NEGATIVE); GLUCOSE, URINE NEGATIVE (NEGATIVE); KETONES,URINE NEGATIVE (NEGATIVE); LEUKOCYTE ESTERASE,URINE NEGATIVE (NEGATIVE); NITRITE,URINE NEGATIVE (NEGATIVE); PROTEIN,URINE NEGATIVE (NEGATIVE); URINE SPECIFIC GRAVITY 1.004; UROBILINOGEN,URINE NEGATIVE mg/dL (<2.0)
[2017-08-28 14:05] VITALS: BP 108/74
--- NOTE | 2017-08-29 09:25 | EKG REPORT ---
SEVERITY:- OTHERWISE NORMAL ECG - SINUS TACHYCARDIA : Confirmed by: Javid Guidry 29-Aug-2017 09:24:56
== END 2017-08-28 14:15 | disposition home or self-care (01) ==
LOC: ER 11:30
DX: R10.813 Right lower quadrant abdominal tenderness (principal); R10.811 Right upper quadrant abdominal tenderness; R06.02 Shortness of breath; R00.0 Tachycardia, unspecified; E11.9 Type 2 diabetes mellitus without complications; Z86.718 Personal history of other venous thrombosis and embolism; Z86.711 Personal history of pulmonary embolism; Z87.01 Personal history of pneumonia (recurrent); Z98.890 Other specified postprocedural states; Z88.0 Allergy status to penicillin; Z85.828 Personal history of other malignant neoplasm of skin; Z87.19 Personal history of other diseases of the digestive system; Z90.49 Acquired absence of other specified parts of digestive tract; Z90.710 Acquired absence of both cervix and uterus
CPT/HCPCS: 93005; 99285; 96361; 96374; 36415; 83690; 85025; 81025; 80053; 81001; 84484; 71010; 71275; 74177; 93010; J2270; J7030

== ENCOUNTER 2018-01-27 20:42 | Emergency (ER) | payer BC, MEDICAID, OTHER ==
[2018-01-27] MEDS ORDERED: MORPHINE SULFATE 10 MG/ML INJ IV ONE ×2 (22:06→23:25)
[2018-01-27] MEDS ORDERED: METHYLPREDNISOLONE INJ 1000 MG VIAL IV ONE (22:06)
--- NOTE | 2018-01-27 22:07 | ER Document Report ---
ED Neck/Back Problem - General Chief Complaint: Back Pain Stated Complaint: BACK PAIN Time Seen by Provider: 01/27/18 21:29 Notes: Patient is a 42-year-old female who presents emergency department the chief complaint of back pain, leg weakness, numbness and incontinence for the past 5 days but got worse today. She states that she does have a history of MS and low back pain does not follow with a neurologist locally for this. She states that she does work at [employer] where there is a lot of heavy lifting but she denies any recent focal injury. She states that she has been taking Motrin, oxycodone, Flexeril at home without any significant improvement. She states her baseline back pain is a 7 out of 10 on the pain today as a 10 out of 10 in pain. She admits to numbness on the posterior aspect of both legs as well as 3 episodes of incontinence. Has been able to walk without any difficulty. 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 Primary care is with Dr. Martinez Has a neurologist in [place] that she follows with for neurology. TRAVEL OUTSIDE OF THE [place] IN LAST 30 DAYS: No - Related Data Allergies/Adverse Reactions: Penicillins Allergy (Mild, Verified 08/28/17 11:36) Hives Past Medical History - Social History Smoking Status: Unknown if Ever Smoked Family History: CAD Patient has suicidal ideation: No Patient has homicidal ideation: No - Past Medical History Cardiac Medical History: Reports: Hx Atrial Fibrillation - SVT, Hx DVT, Hx Pulmonary Embolism Pulmonary Medical History: Reports: Hx Bronchitis, Hx Pneumonia Neurological Medical History: Reports: Hx Migraine. Denies: Hx Seizures Endocrine Medical History: Reports: Hx Diabetes Mellitus Type 2 Renal/ Medical History: Reports: Hx Kidney Stones, Hx Ovarian Cysts. Denies: Hx Peritoneal Dialysis Malignancy Medical History: Reports: Hx Skin Cancer GI Medical History: Reports: Hx Gastroesophageal Reflux Disease, Hx Irritable Bowel Musculoskeltal Medical History: Reports Hx Arthritis, Reports Hx Multiple Sclerosis Psychiatric Medical History: Reports: Hx Anxiety, Hx Depression Traumatic Medical History: Reports: Hx Fractures Past Surgical History: Reports: Hx Section - x2, Hx Cholecystectomy, Hx Hysterectomy, Hx Orthopedic Surgery - Tumor removed from spine - Immunizations Immunizations up to date: Yes Hx Diphtheria, Pertussis, Tetanus Vaccination: Yes Review of Systems - Review of Systems Constitutional: No symptoms reported Cardiovascular: No symptoms reported Respiratory: No symptoms reported Gastrointestinal: No symptoms reported Genitourinary: See HPI Musculoskeletal: See HPI Neurological/Psychological: See HPI -: Yes All other systems reviewed and negative Physical Exam - Vital signs Vitals: Temp Pulse Resp BP Pulse Ox 97.8 F 82 18 123/76 100 01/27/18 20:46 01/27/18 20:46 01/27/18 20:46 01/27/18 20:46 01/27/18 20:46 - Notes Notes: PHYSICAL EXAM GENERAL: Alert, interacts well. HEAD: Normocephalic, atraumatic. EYES: Pupils equal, round, and reactive to light. Extraocular movements intact. ENT: Oral mucosa moist, tongue midline. NECK: Full range of motion. Supple. Trachea midline. LUNGS: Clear to auscultation bilaterally, no wheezes, rales, or rhonchi. No respiratory distress. HEART: Regular rate and rhythm. No murmurs, gallops, or rubs. ABDOMEN: Soft, nondistended, nontender. No guarding, rebound, or rigidity.. Bowel sounds present in all 4 quadrants. Rectal tone intact. EXTREMITIES: Moves all 4 extremities spontaneously. No edema, radial and dorsalis pedis pulses 2/4 bilaterally. No cyanosis. NEUROLOGICAL: Alert and oriented x4. Face symmetric. Tongue protrudes midline. Extraocular motions intact. Pupils are 2 mm and equally reactive. Normal speech, normal gait space with mild limp in the right leg due to pain. 5 out of 5 strength in both the distal and proximal upper and lower extremities bilaterally. Sensation is grossly intact throughout. Able to differentiate between sharp and dull sensation. in bilateral LE's. Reflexes intact in b/l upper and lower extremities. Finger to nose testing normal. Pronator drift normal. PSYCH: Normal affect, normal mood. SKIN: Warm, dry, normal turgor. No rashes or lesions noted. Course - Re-evaluation Re-evalutation: 01/27/18 23:00 Patient is a 42-year-old female who is hemodynamically stable, no acute distress and afebrile. Vital signs are stable. Patient presents with symptoms consistent with a MS flare without signs of spinal cord compression, cauda equina syndrome, infection, aneurysm, or other serious etiology. The patient is neurologically intact. Physical exam with rectal tone intact without any laxity , sensation intact throughout. Patient able to ambulate. Given her complicated spine h/o she is requesting imaging at this time. 01/28/18 01:04 CT does not show any evidence of acute injury but with evidence of lumbar disc disease. Patient clinically improved after pain medication and ambulating well. Discussed with her to follow-up with her neurologist in [place] otherwise discussed strict return precautions. Given the extremely low risk of these diagnoses further testing and evaluation for these possibilities does not appear to be indicated at this time. The patient has been instructed to return if the symptoms worsen or change in any way. - Vital Signs Vital signs: Temp Pulse Resp BP Pulse Ox 97.8 F 82 18 123/76 100 01/27/18 20:46 01/27/18 20:46 01/27/18 20:46 01/27/18 20:46 01/27/18 20:46 - Diagnostic Test Radiology reviewed: Image reviewed, Reports reviewed Discharge - Discharge Clinical Impression: Multiple sclerosis Condition: Good Disposition: HOME, SELF-CARE Additional Instructions: Your presentation today is consistent with your multiple sclerosis and what is equivalent to a flareup. Please take the steroids as directed. Please return to the emergency department with any worsening symptoms are concerning to you, if you are unable to walk. Please follow-up with your neurologist in [place] tomorrow. [facility] Address: [address] [place] [address], [place] [address] Prescriptions: Prednisone [Deltasone 20 mg Tablet] 3 tab PO DAILY 7 Days tablet Forms: Return to Work Referrals: FRANK SALMERON MD [Primary Care Provider] - Follow up tomorrow
[2018-01-27] MEDS ORDERED: ONDANSETRON HCL INJ/PF 4 MG/2 ML SDV IV ONE (23:25)
--- NOTE | 2018-01-28 00:54 | RADIOLOGY REPORT (SQ) ---
EXAM DESCRIPTION: CT LUMBAR SPINE WITHOUT CLINICAL HISTORY: low back pain COMPARISON: 06/05/2017 TECHNIQUE: Axial CT of the lumbar spine obtained without contrast. FINDINGS: Alignment of the lumbar spine is maintained without evidence of subluxation. No fracture identified. Vertebral body height preserved. Paravertebral soft tissues are unremarkable. L1/2: Intervertebral disc height preserved. L2/3: Intervertebral disc height preserved. Mild endplate spondylosis. Minimal broad-based posterior disc bulge. No osseous central canal or neural foraminal narrowing. L3/4: Intervertebral disc height preserved. Broad-based posterior disc bulge. No osseous central canal nor neural foraminal narrowing. L4/5: Mild loss of intervertebral disc height. Mild broad-based posterior disc bulge. Likely effacement of the anterior thecal sac. No definite neural foraminal narrowing. L5/S1: Moderate loss of intervertebral disc height. Endplate spondylosis. Broad-based posterior disc bulge. Mild bilateral neural foraminal narrowing. No definite central canal narrowing. No definite abnormalities of the visualized abdominal or pelvic soft tissues. DLP: 467.04 mGy-cm IMPRESSION: 1. No acute fracture or subluxation of the lumbar spine. 2. Mild multilevel degenerative change of the lumbar spine, most severe at L4/5 and L5/1 as previously demonstrated on MRI. This exam was performed according to our departmental dose-optimization program, which includes automated exposure control, adjustment of the mA and/or kV according to patient size and/or use of iterative reconstruction technique.
[2018-01-28 01:11] VITALS: BP 111/67
== END 2018-01-28 01:11 | disposition home or self-care (01) ==
LOC: ER 20:42
DX: G35 Multiple sclerosis (principal); M54.9 Dorsalgia, unspecified; M62.81 Muscle weakness (generalized); M54.5 Low back pain; X50.0XXA Overexertion from strenuous movement or load, initial encounter; Y99.0 Civilian activity done for income or pay; Z86.718 Personal history of other venous thrombosis and embolism; Z86.711 Personal history of pulmonary embolism; Z79.01 Long term (current) use of anticoagulants; Z87.891 Personal history of nicotine dependence; E11.9 Type 2 diabetes mellitus without complications
CPT/HCPCS: 96376; 99284; 96374; 96375; 72131; J2930; J2270; J2405

== ENCOUNTER 2018-03-02 08:03 | Emergency (ER) | payer BC, MEDICAID ==
[2018-03-02] MEDS ORDERED: HYDROMORPHONE HCL INJ/PF 2 MG/ML AMPULE IV ONE ×2 (08:49→12:16)
[2018-03-02] MEDS ORDERED: NORMAL SALINE 1000 ML 1,000 ML IV ONE (08:49)
[2018-03-02] MEDS ORDERED: ONDANSETRON HCL INJ/PF 4 MG/2 ML SDV IV ONE (08:49)
--- NOTE | 2018-03-02 08:50 | ER Document Report ---
ED GI/ - General Chief Complaint: Abdominal Pain Stated Complaint: ABDOMINAL PAIN Time Seen by Provider: 03/02/18 08:20 Mode of Arrival: Ambulatory Information source: Patient Notes: Patient presents with a 3 day history of lower abdominal pain with nausea. Patient denies any vomiting vaginal bleeding or discharge. Patient denies any urinary symptoms. Patient does report fever at home of 102 today with decreased appetite. TRAVEL OUTSIDE OF THE [place] IN LAST 30 DAYS: No - HPI Patient complains to provider of: Pelvic pain, Other - Nausea. No: , Vomiting Onset: Other - 3 days Timing/Duration: Persistent Quality of pain: Sharp Pain Level: 4 Location: Pelvis Vaginal bleeding (Compared to normal period): None Associated symptoms: Fever, Loss of appetite, Nausea. 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 Denies: Hx Seizures Endocrine Medical History: Reports: Hx Diabetes Mellitus Type 2 Renal/ Medical History: Reports: Hx Kidney Stones, Hx Ovarian Cysts. Denies: Hx Peritoneal Dialysis Malignancy Medical History: Reports: Hx Skin Cancer GI Medical History: Reports: Hx Gastroesophageal Reflux Disease, Hx Irritable Bowel Musculoskeltal Medical History: Reports Hx Arthritis, Reports Hx Multiple Sclerosis Psychiatric Medical History: Reports: Hx Anxiety, Hx Depression Traumatic Medical History: Reports: Hx Fractures Past Surgical History: Reports: Hx Section - x2, Hx Cholecystectomy, Hx Hysterectomy, Hx Orthopedic Surgery - Tumor removed from spine - Immunizations Immunizations up to date: Yes Hx Diphtheria, Pertussis, Tetanus Vaccination: Yes Review of Systems - Review of Systems Constitutional: Fever EENT: No symptoms reported Cardiovascular: No symptoms reported. denies: Chest pain Respiratory: No symptoms reported. denies: Cough, Short of breath Gastrointestinal: Abdominal pain, Nausea, Poor appetite. denies: Diarrhea, Vomiting, Constipation Genitourinary: No symptoms reported. denies: Dysuria, Flank pain Female Genitourinary: No symptoms reported. denies: , Vaginal discharge , Vaginal bleeding Musculoskeletal: No symptoms reported Skin: No symptoms reported Hematologic/Lymphatic: No symptoms reported Neurological/Psychological: No symptoms reported Physical Exam - Vital signs Vitals: Temp Pulse Resp BP Pulse Ox 99.4 F 86 18 118/73 98 03/02/18 08:10 03/02/18 08:10 03/02/18 08:10 03/02/18 08:10 03/02/18 08:10 - General General appearance: Appears well, Alert In distress: None - HEENT Head: Normocephalic, Atraumatic Eyes: Normal Conjunctiva: Normal Nasal: Normal Mouth/Lips: Normal Mucous membranes: Normal Pharynx: Normal Neck: Normal, Supple. No: Lymphadenopathy - Respiratory Respiratory status: No respiratory distress Chest status: Nontender Breath sounds: Normal. No: Rales, Rhonchi, Stridor, Wheezing Chest palpation: Normal - Cardiovascular Rhythm: Regular Heart sounds: S1 appreciated, S2 appreciated Murmur: No - Abdominal Inspection: Normal Distension: No distension Bowel sounds: Normal Tenderness: Tender - Right lower quadrant, suprapubic, left lower quadrant, most tender to right lower quadrant, Guarding Organomegaly: No organomegaly - Back Back: Normal, Nontender. No: CVA tenderness - Extremities General upper extremity: Normal inspection, Normal ROM General lower extremity: Normal inspection, Normal ROM - Neurological Neuro grossly intact: Yes Cognition: Normal Kenneth Coma Scale Eye Opening: Spontaneous Kenneth Coma Scale Verbal: Oriented [place] Coma Scale Motor: Obeys Commands Kenneth Coma Scale Total: 15 - Psychological Associated symptoms: Normal affect, Normal mood - Skin Skin Temperature: Warm Skin Moisture: Dry Skin Color: Normal Course - Re-evaluation Re-evalutation: 03/02/18 11:00 Patient continues with right lower quadrant abdominal tenderness. Nausea resolved at this time. 03/02/18 17:12 Patient presents with abdominal pain without signs of peritonitis or other life- threatening or serious etiology. Patient appears stable for discharge and has been instructed to return immediately if the symptoms worsen in any way, or in 8 -12 hours if not improved for reevaluation. The patient has been instructed to return if the symptoms worsen or change in any way. - Vital Signs Vital signs: Temp Pulse Resp BP Pulse Ox 98.4 F 62 17 101/73 99 03/02/18 17:49 03/02/18 17:49 03/02/18 17:49 03/02/18 17:49 03/02/18 17:49 - Laboratory Result Diagrams: 03/02/18 10:13 03/02/18 10:13 Laboratory results interpreted by me: 03/02/18 03/02/18 10:13 10:13 Monocytes % 15.1 H Chloride 109 H Total Protein 6.2 L Labs- Entire Visit 03/02/18 03/02/18 03/02/18 09:00 09:00 10:13 WBC 4.6 RBC 3.85 Hgb 12.5 Hct 36.9 MCV 96 MCH 32.5 MCHC 33.8 RDW 13.2 Plt Count 154 Seg Neutrophils % 58.8 Lymphocytes % 25.4 Monocytes % 15.1 H Eosinophils % 0.3 Basophils % 0.4 Absolute Neutrophils 2.7 Absolute Lymphocytes 1.2 Absolute Monocytes 0.7 Absolute Eosinophils 0.0 Absolute Basophils 0.0 Sodium Potassium Chloride Carbon Dioxide Anion Gap BUN Creatinine Est GFR ( Amer) Est GFR (Non-Af Amer) Glucose Calcium Total Bilirubin Direct Bilirubin Neonat Total Bilirubin Neonat Direct Bilirubin Neonat Indirect Bili AST ALT Alkaline Phosphatase Total Protein Albumin Lipase Urine Color STRAW Urine Appearance CLEAR Urine pH 6.0 Ur Specific [place] 1.004 Urine Protein NEGATIVE Urine Glucose (UA) NEGATIVE Urine Ketones NEGATIVE Urine Blood NEGATIVE Urine Nitrite NEGATIVE Urine Bilirubin NEGATIVE Urine Urobilinogen NEGATIVE Ur Leukocyte Esterase NEGATIVE Urine WBC (Auto) 0 Urine RBC (Auto) 0 Urine Bacteria (Auto) TRACE Squamous Epi Cells Auto 4 Urine Mucus (Auto) RARE Urine Ascorbic Acid NEGATIVE Chlamydia DNA (PCR) NOT DETECTED N.gonorrhoeae DNA (PCR) NOT DETECTED 03/02/18 10:13 WBC RBC Hgb Hct MCV MCH MCHC RDW Plt Count Seg Neutrophils % Lymphocytes % Monocytes % Eosinophils % Basophils % Absolute Neutrophils Absolute Lymphocytes Absolute Monocytes Absolute Eosinophils Absolute Basophils Sodium 142.3 Potassium 4.2 Chloride 109 H Carbon Dioxide 26 Anion Gap 7 BUN 7 Creatinine 0.60 Est GFR ( Amer) > 60 Est GFR (Non-Af Amer) > 60 Glucose 82 Calcium 8.9 Total Bilirubin 0.3 Direct Bilirubin 0.3 Neonat Total Bilirubin Not Reportable Neonat Direct Bilirubin Not Reportable Neonat Indirect Bili Not Reportable AST 23 ALT 26 Alkaline Phosphatase 46 Total Protein 6.2 L Albumin 3.7 Lipase 55.4 Urine Color Urine Appearance Urine pH Ur Specific [place] Urine Protein Urine Glucose (UA) Urine Ketones Urine Blood Urine Nitrite Urine Bilirubin Urine Urobilinogen Ur Leukocyte Esterase Urine WBC (Auto) Urine RBC (Auto) Urine Bacteria (Auto) Squamous Epi Cells Auto Urine Mucus (Auto) Urine Ascorbic Acid Chlamydia DNA (PCR) N.gonorrhoeae DNA (PCR) - Diagnostic Test Radiology reviewed: Image reviewed, Reports reviewed Discharge - Discharge Clinical Impression: Nausea Abdominal pain Qualifiers: Abdominal location: unspecified location Qualified Code(s): R10.9 - Unspecified abdominal pain Ovarian cyst Qualifiers: Laterality: left Qualified Code(s): N83.202 - Unspecified ovarian cyst, left side Condition: Stable Disposition: HOME, SELF-CARE Instructions: Abdominal Pain ([facility]), Antinausea Medication ([facility]), Ovarian Cyst ( [facility]) Additional Instructions: Return immediately for any new or worsening symptoms Followup with your primary care provider, call tomorrow to make a followup appointment 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
[2018-03-02 10:05] LABS: APPEARANCE,URINE CLEAR; BILIRUBIN,URINE NEGATIVE (NEGATIVE); COLOR,URINE STRAW; GLUCOSE, URINE NEGATIVE (NEGATIVE); KETONES,URINE NEGATIVE (NEGATIVE); LEUKOCYTE ESTERASE,URINE NEGATIVE (NEGATIVE); NITRITE,URINE NEGATIVE (NEGATIVE); PROTEIN,URINE NEGATIVE (NEGATIVE); URINE SPECIFIC GRAVITY 1.004; UROBILINOGEN,URINE NEGATIVE mg/dL (<2.0)
[2018-03-02 10:34] LABS: ABSOLUTE LYMPHOCYTES (AUTO) 1.2 10^3/uL (0.5-4.7); ABSOLUTE MONOCYTES (AUTO) 0.7 10^3/uL (0.1-1.4); ABSOLUTE NEUT (AUTO) 2.7 10^3/uL (1.7-8.2); BASOPHILS % (AUTO) 0.4 % (0-2); EOSINOPHILS % (AUTO) 0.3 % (0-6); HEMATOCRIT 36.9 % (36.0-47.0); HEMOGLOBIN 12.5 g/dL (12.0-15.5); LYMPHOCYTES % (AUTO) 25.4 % (13-45); MEAN CORPUSCULAR HEMOGLOBIN 32.5 pg (27.0-33.4); MEAN CORPUSCULAR HGB CONC 33.8 g/dL (32.0-36.0); MEAN CORPUSCULAR VOLUME 96 fl (80-97); MONOCYTES % (AUTO) 15.1 % (3-13); PLATELET COUNT 154 10^3/uL (150-450); RED BLOOD COUNT 3.85 10^6/uL (3.72-5.28); RED CELL DISTRIBUTION WIDTH 13.2 % (11.5-14.0); SEGMENTED NEUTROPHILS % (AUTO) 58.8 % (42-78); TOTAL CELLS COUNTED % (AUTO) 100 %; WHITE BLOOD COUNT 4.6 10^3/uL (4.0-10.5)
[2018-03-02 10:58] LABS: ALANINE AMINOTRANSFERASE 26 U/L (9-52); ALBUMIN 3.7 g/dL (3.5-5.0); ALKALINE PHOSPHATASE 46 U/L (38-126); ANION GAP 7 (5-19); ASPARTATE AMINO TRANSFERASE 23 U/L (14-36); BILIRUBIN,DIRECT 0.3 mg/dL (0.0-0.4); BILIRUBIN,TOTAL 0.3 mg/dL (0.2-1.3); BLOOD UREA NITROGEN 7 mg/dL (7-20); CALCIUM 8.9 mg/dL (8.4-10.2); CARBON DIOXIDE 26 mmol/L (22-30); CHLORIDE 109 mmol/L (98-107); GLUCOSE 82 mg/dL (75-110); LIPASE 55.4 U/L (23-300); POTASSIUM 4.2 mmol/L (3.6-5.0); SODIUM 142.3 mmol/L (137-145); TOTAL PROTEIN 6.2 g/dL (6.3-8.2)
--- NOTE | 2018-03-02 13:14 | RADIOLOGY REPORT (SQ) ---
EXAM DESCRIPTION: CT ABD/PELVIS WITH IV ORAL COMPLETED DATE/TIME: 03/02/2018 12:51 pm REASON FOR STUDY: RLQ pain COMPARISON: CT abdomen pelvis 07/04/2014, 08/28/2017 CT lumbar spine 01/28/2018 TECHNIQUE: CT scan of the abdomen and pelvis performed using helical scanning technique with dynamic intravenous contrast injection. Patient drank oral contrast. Images reviewed with lung, soft tissue, and bone windows. Reconstructed coronal and sagittal MPR images reviewed. Delayed images for evaluation of the urinary system also ac quired. All images stored on PACS. All CT scanners at this facility use dose modulation, iterative reconstruction, and/or weight based d osing when appropriate to reduce radiation dose to as low as reasonably achievable (ALARA). [facility]: Dose Right [facility]: CareDose [facility]: Dose Right [facility]: Teradose 4D [facility]: [employer] CONTRAST TYPE AND DOSE: contrast/concentration: Isovue 370.00 mg/ml; Total Contrast Delivered: 74.0 ml; Total Saline Delivered: 66.0 ml RENAL FUNCTION: Creatinine 0.6 RADIATION DOSE: CT Rad equipment meets quality standard of care and radiation dose reduction techniq ues were employed. CTDIvol: 6.0 - 8.5 mGy. DLP: 775 mGy-cm.. LIMITATIONS: None. FINDINGS: LOWER CHEST: No significant findings. No nodules or infiltrates. LIVER: Normal size. No masses. No dilated ducts. SPLEEN: Normal size. No focal lesions. PANCREAS: No masses. No significant calcifications. No adjacent inflammation or peripancreatic fluid collections. Pancreatic duct not dilated. GALLBLADDER: Surgically absent ADRENAL GLANDS: No significant masses or asymmetry. RIGHT KIDNEY AND URETER: No solid masses. No significant calcifications. No hydronephrosis or hyd roureter. LEFT KIDNEY AND URETER: No solid masses. No significant calcifications. No hydronephrosis or hydr oureter. AORTA AND VESSELS: No aneurysm. No dissection. Renal arteries, SMA, celiac without stenosis. RETROPERITONEUM: Single enlarged retroperitoneal lymph node aortocaval region axial image 46, 1.8 x 1 cm in size BOWEL AND PERITONEAL CAVITY: No masses or inflammatory changes. No free fluid or peritoneal masses. APPENDIX: Normal. PELVIS: Post partial hysterectomy. On the right side, ovaries 2.8 x 1.7 cm without cysts or masses. On the left side, ovary is 5.6 x 4.4 cm with multiple ovarian cysts present. No free pelvic fluid. No pelvic adenopathy. ABDOMINAL WALL: No masses. No hernias. BONES: No significant or acute findings. OTHER: No other significant finding. IMPRESSION: No CT findings to explain history of right lower quadrant pain. Appendix unremarkable. Post partial hysterectomy with normal size right ovary. Left ovary enlarged with several cysts prese nt. Post cholecystectomy TECHNICAL DOCUMENTATION: JOB ID: [id number] Quality ID # [id number]: Final reports with documentation of one or more dose reduction techniques (e.g., Au tomated exposure control, adjustment of the mA and/or kV according to patient size, use of iterative reconstruction technique) 2010 [employer]- All Rights Reserved Reading location - IP/workstation name: [email or web address]
[2018-03-02 14:13] LABS: CHLAM PCR NOT DETECTED (NOT DETECT); GON PCR NOT DETECTED (NOT DETECT)
--- NOTE | 2018-03-02 16:41 | RADIOLOGY REPORT (SQ) ---
EXAM DESCRIPTION: U/S NON OB PEL TV W/DOPPLER COMPLETED DATE/TIME: 03/02/2018 4:31 pm REASON FOR STUDY: pelvic pain COMPARISON: None. TECHNIQUE: Dynamic and static grayscale images acquired of the pelvis via transvaginal approach and recorded on PACS. Additional selected color Doppler and spectral images recorded. LIMITATIONS: None. FINDINGS: UTERUS: Prior hysterectomy. ENDOMETRIAL STRIPE: Prior hysterectomy. CERVIX: 3.6 cm. RIGHT OVARY AND DOPPLER: Ovary not visualized. LEFT OVARY AND DOPPLER: Small cysts or dominant follicles measuring up to about 2 cm. Normal arteria l flow. FREE FLUID: None noted. OTHER: No other significant finding. MEASUREMENTS: UTERUS: Not applicable. ENDOMETRIAL STRIPE: Not applicable. RIGHT OVARY: Not visualized. LEFT OVARY: 5.0 x 4.0 x 4.2 cm. IMPRESSION: Normal left ovary. Right ovary not visualized. TECHNICAL DOCUMENTATION: JOB ID: [id number] [employer]- All Rights Reserved Rev Reading location - IP/workstation name: [email or web address]
[2018-03-02 17:54] VITALS: BP 101/73
== END 2018-03-02 17:53 | disposition home or self-care (01) ==
LOC: ER 08:03
DX: N83.202 Unspecified ovarian cyst, left side (principal); R11.0 Nausea; R50.9 Fever, unspecified; R63.0 Anorexia; R10.2 Pelvic and perineal pain; R10.813 Right lower quadrant abdominal tenderness; R10.814 Left lower quadrant abdominal tenderness; F17.200 Nicotine dependence, unspecified, uncomplicated; E11.9 Type 2 diabetes mellitus without complications; Z87.442 Personal history of urinary calculi; Z87.19 Personal history of other diseases of the digestive system; Z90.49 Acquired absence of other specified parts of digestive tract; Z90.711 Acquired absence of uterus with remaining cervical stump; Z88.0 Allergy status to penicillin
CPT/HCPCS: 96376; 99284; 96361; 96374; 96375; 36415; 83690; 85025; 80053; 81001; 87491; 87591; 76830; 93976; 74177; J1170; J2405; J7030

== ENCOUNTER 2018-05-21 19:38 | Emergency (ER) | payer BC, MEDICAID ==
[2018-05-21] MEDS ORDERED: ASPIRIN 81 MG TABLET, CHEWABLE PO ONE (20:20)
[2018-05-21 21:04] LABS: ABSOLUTE BASOPHILS # (AUTO) 0.1 10^3/uL (0.0-0.2); ABSOLUTE EOSINOPHILS # (AUTO) 0.1 10^3/uL (0.0-0.6); ABSOLUTE LYMPHOCYTES (AUTO) 2.2 10^3/uL (0.5-4.7); ABSOLUTE MONOCYTES (AUTO) 0.7 10^3/uL (0.1-1.4); ABSOLUTE NEUT (AUTO) 5.1 10^3/uL (1.7-8.2); HEMATOCRIT 40.9 % (36.0-47.0); HEMOGLOBIN 14.3 g/dL (12.0-15.5); LYMPHOCYTES % (AUTO) 27.2 % (13-45); MEAN CORPUSCULAR HEMOGLOBIN 32.6 pg (27.0-33.4); MEAN CORPUSCULAR VOLUME 93 fl (80-97); MONOCYTES % (AUTO) 8.2 % (3-13); PLATELET COUNT 245 10^3/uL (150-450); RED BLOOD COUNT 4.39 10^6/uL (3.72-5.28); RED CELL DISTRIBUTION WIDTH 12.9 % (11.5-14.0); SEGMENTED NEUTROPHILS % (AUTO) 62.6 % (42-78); TOTAL CELLS COUNTED % (AUTO) 100 %; WHITE BLOOD COUNT 8.2 10^3/uL (4.0-10.5)
[2018-05-21 21:25] LABS: ALANINE AMINOTRANSFERASE 24 U/L (9-52); ALBUMIN 4.7 g/dL (3.5-5.0); ALKALINE PHOSPHATASE 50 U/L (38-126); ANION GAP 12 (5-19); ASPARTATE AMINO TRANSFERASE 22 U/L (14-36); BILIRUBIN,DIRECT 0.3 mg/dL (0.0-0.4); BILIRUBIN,TOTAL 0.5 mg/dL (0.2-1.3); BLOOD UREA NITROGEN 10 mg/dL (7-20); CALCIUM 9.7 mg/dL (8.4-10.2); CARBON DIOXIDE 31 mmol/L (22-30); CHLORIDE 96 mmol/L (98-107); CREATINE KINASE 69 U/L (30-135); GLUCOSE 83 mg/dL (75-110); POTASSIUM 3.2 mmol/L (3.6-5.0); SODIUM 139.4 mmol/L (137-145); TOTAL PROTEIN 7.8 g/dL (6.3-8.2)
[2018-05-21 21:34] LABS: CREATINE KINASE MB 0.32 ng/mL (<4.55)
[2018-05-21 21:37] LABS: TROPONIN I < 0.012 ng/mL
--- NOTE | 2018-05-21 21:37 | RADIOLOGY REPORT (SQ) ---
EXAM DESCRIPTION: CHEST SINGLE VIEW COMPLETED DATE/TIME: 05/21/2018 8:41 pm REASON FOR STUDY: cp COMPARISON: 11/08/2016 EXAM PARAMETERS: NUMBER OF VIEWS: One view. TECHNIQUE: Single frontal radiographic view of the chest acquired. RADIATION DOSE: NA LIMITATIONS: None. FINDINGS: LUNGS AND PLEURA: No opacities, masses or pneumothorax. No pleural effusion. MEDIASTINUM AND HILAR STRUCTURES: No masses. Contour normal. HEART AND VASCULAR STRUCTURES: Heart normal in size. Normal vasculature. BONES: No acute findings. HARDWARE: None in the chest. OTHER: No other significant finding. IMPRESSION: NO ACUTE RADIOGRAPHIC FINDING IN THE CHEST. TECHNICAL DOCUMENTATION: JOB ID: [id number] [employer] All Rights Reserved Reading location - IP/workstation name: [email or web address]
[2018-05-21] MEDS ORDERED: POTASSIUM CHLORIDE 10 MEQ CAPSULE.ER PO ONE (22:42)
--- NOTE | 2018-05-21 22:47 | ER Document Report ---
ED Medical Screen (RME) - General Chief Complaint: Chest Pain > 30 Stated Complaint: CHEST PAIN Time Seen by Provider: 05/21/18 22:40 Mode of Arrival: Ambulatory Information source: Patient Notes: Patient is a 43-year-old female who presents with chief complaint of chest pain and shortness of breath that started yesterday. Patient reports that her symptoms are worse with ambulation and reports that she feels exhausted. Patient has a history of tachycardia. Patient reports that at home today her heart rate was ranging from the 120s-160s. Patient denies any headache. Patient now reports that she has a history of pulmonary embolisms in October. Reports that she stopped taking her Eliquis approximately 30 days ago on her own accord. Initial workup was ordered by triage nurse. CBC is unremarkable. Comprehensive metabolic panel reveals a potassium of 3.2, will replace potassium orally in triage. Will have patient's second troponin drawn and add on a d-dimer to patient's initial labs. Exam: Lung sounds clear to auscultation bilaterally. I have greeted and performed a rapid initial assessment of this patient. A comprehensive ED assessment and evaluation of the patient, analysis of test results and completion of the medical decision making process will be conducted by additional ED providers. Dictation of this chart was performed using voice recognition software; therefore, there may be some unintended grammatical errors. TRAVEL OUTSIDE OF THE [place] IN LAST 30 DAYS: No - Related Data Allergies/Adverse Reactions: Penicillins Allergy (Mild, Verified 05/21/18 19:38) Hives Past Medical History - Past Medical History Cardiac Medical History: Reports: Hx Atrial Fibrillation - SVT, Hx DVT, Hx Pulmonary Embolism Pulmonary Medical History: Reports: Hx Bronchitis, Hx Pneumonia Neurological Medical History: Reports: Hx Migraine. Denies: Hx Seizures Endocrine Medical History: Reports: Hx Diabetes Mellitus Type 2 Renal/ Medical History: Reports: Hx Kidney Stones, Hx Ovarian Cysts. Denies: Hx Peritoneal Dialysis Malignancy Medical History: Reports: Hx Skin Cancer GI Medical History: Reports: Hx Gastroesophageal Reflux Disease, Hx Irritable Bowel Musculoskeltal Medical History: Reports Hx Arthritis, Reports Hx Multiple Sclerosis Psychiatric Medical History: Reports: Hx Anxiety, Hx Depression Traumatic Medical History: Reports: Hx Fractures Past Surgical History: Reports: Hx Section - x2, Hx Cholecystectomy, Hx Hysterectomy, Hx Orthopedic Surgery - Tumor removed from spine - Immunizations Immunizations up to date: Yes Hx Diphtheria, Pertussis, Tetanus Vaccination: Yes Physical Exam - Vital signs Vitals: Temp Pulse Resp BP Pulse Ox 98.7 F 90 16 127/72 H 100 05/21/18 19:54 05/21/18 19:54 05/21/18 19:54 05/21/18 19:54 05/21/18 19:54 Course - Vital Signs Vital signs: Temp Pulse Resp BP Pulse Ox 98.7 F 90 16 127/72 H 100 05/21/18 19:54 05/21/18 19:54 05/21/18 19:54 05/21/18 19:54 05/21/18 19:54 - Laboratory Result Diagrams: 05/21/18 20:30 05/21/18 20:30 Laboratory results interpreted by me: 05/21/18 20:30 Potassium 3.2 L Chloride 96 L Carbon Dioxide 31 H Doctor's Discharge - Discharge Referrals: DALTON ROMAN MD [Primary Care Provider] - Follow up as needed
--- NOTE | 2018-05-21 23:32 | EKG REPORT ---
SEVERITY:- BORDERLINE ECG - SINUS RHYTHM BORDERLINE T ABNORMALITIES, DIFFUSE LEADS : Confirmed by: Kindra Fleming MD 21-May-2018 23:32:04
--- NOTE | 2018-05-22 03:24 | ER Document Report ---
ED General - General Chief Complaint: Chest Pain > 30 Stated Complaint: CHEST PAIN Time Seen by Provider: 05/21/18 22:40 Mode of Arrival: Ambulatory TRAVEL OUTSIDE OF THE [place] IN LAST 30 DAYS: No - HPI Patient complains to provider of: Chest pain Notes: Patient was substernal chest pain dyspnea on exertion and palpitations when ambulating ongoing for greater than 24 hours. Patient states recently started on hydrochlorthiazide because swelling in legs. Patient denies any fevers chills nausea vomiting diarrhea or recent travel. Patient denies any history of hypertension diabetes states she does have history of blood clots and has taken herself off her blood thinning medication. Patient continues to smoke. Patient advised risk of the pulmonary evaluation - Related Data Allergies/Adverse Reactions: Penicillins Allergy (Mild, Verified 05/21/18 19:38) Hives Past Medical History - General Information source: Patient - Social History Smoking Status: Unknown if Ever Smoked Family History: CAD Patient has suicidal ideation: No Patient has homicidal ideation: No - Past Medical History Cardiac Medical History: Reports: Hx Atrial Fibrillation - SVT, Hx DVT, Hx Pulmonary Embolism Pulmonary Medical History: Reports: Hx Bronchitis, Hx Pneumonia Neurological Medical History: Reports: Hx Migraine. Denies: Hx Seizures Endocrine Medical History: Reports: Hx Diabetes Mellitus Type 2 Renal/ Medical History: Reports: Hx Kidney Stones, Hx Ovarian Cysts. Denies: Hx Peritoneal Dialysis Malignancy Medical History: Reports: Hx Skin Cancer GI Medical History: Reports: Hx Gastroesophageal Reflux Disease, Hx Irritable Bowel Musculoskeletal Medical History: Reports Hx Arthritis, Reports Hx Multiple Sclerosis Psychiatric Medical History: Reports: Hx Anxiety, Hx Depression Traumatic Medical History: Reports: Hx Fractures Past Surgical History: Reports: Hx Section - x2, Hx Cholecystectomy, Hx Hysterectomy, Hx Orthopedic Surgery - Tumor removed from spine - Immunizations Immunizations up to date: Yes Hx Diphtheria, Pertussis, Tetanus Vaccination: Yes Review of Systems - Review of Systems Constitutional: No symptoms reported EENT: No symptoms reported Cardiovascular: Chest pain Respiratory: No symptoms reported Gastrointestinal: No symptoms reported Genitourinary: No symptoms reported Female Genitourinary: No symptoms reported Musculoskeletal: No symptoms reported Skin: No symptoms reported Hematologic/Lymphatic: No symptoms reported Neurological/Psychological: No symptoms reported -: Yes All other systems reviewed and negative Physical Exam - Vital signs Vitals: Temp Pulse Resp BP Pulse Ox 98.7 F 90 16 127/72 H 100 05/21/18 19:54 05/21/18 19:54 05/21/18 19:54 05/21/18 19:54 05/21/18 19:54 Interpretation: Normal - General General appearance: Appears well, Alert - HEENT Head: Normocephalic, Atraumatic Eyes: Normal Pupils: PERRL - Respiratory Respiratory status: No respiratory distress Chest status: Nontender Breath sounds: Normal Chest palpation: Normal - Cardiovascular Rhythm: Regular Heart sounds: Normal auscultation Murmur: No - Abdominal Inspection: Normal Distension: No distension Bowel sounds: Normal Tenderness: Nontender Organomegaly: No organomegaly - Back Back: Normal, Nontender - Extremities General upper extremity: Normal inspection, Nontender, Normal color, Normal ROM , Normal temperature General lower extremity: Normal inspection, Nontender, Normal color, Normal ROM , Normal temperature, Normal weight bearing. No: Lili's sign - Neurological Neuro grossly intact: Yes Cognition: Normal Orientation: AAOx4 [place] Coma Scale Eye Opening: Spontaneous Kenneth Coma Scale Verbal: Oriented Kenneth Coma Scale Motor: Obeys Commands Kenneth Coma Scale Total: 15 Speech: Normal Motor strength normal: LUE, RUE, LLE, RLE Sensory: Normal - Psychological Associated symptoms: Normal affect, Normal mood - Skin Skin Temperature: Warm Skin Moisture: Dry Skin Color: Normal Course - Re-evaluation Re-evalutation: 05/22/18 06:13 The patient has atypical chest pain as the patient's chest pain is not suggestive of pulmonary embolus, cardiac ischemia, aortic dissection, or other serious etiology. Given the extremely low risk of these diagnoses further testing and evaluation for these possibilities does not appear to be indicated at this time. The patient has been instructed to return if the symptoms worsen or change in any way. - Vital Signs Vital signs: Temp Pulse Resp BP Pulse Ox 98.7 F 71 14 107/76 95 05/22/18 03:01 05/22/18 00:51 05/22/18 03:01 05/22/18 03:00 05/22/18 03:01 - Laboratory Result Diagrams: 05/21/18 20:30 05/21/18 20:30 Laboratory results interpreted by me: 05/21/18 20:30 Potassium 3.2 L Chloride 96 L Carbon Dioxide 31 H Discharge - Discharge Clinical Impression: SOB (shortness of breath) on exertion, Smoking, Hypokalemia Chest pain, unspecified Qualifiers: Chest pain type: unspecified Qualified Code(s): R07.9 - Chest pain, unspecified Condition: Good Disposition: HOME, SELF-CARE Instructions: Chest Pain of Unclear Cause ([facility]), Palpitations (Irregular or Rapid Heartrate) ([facility]), Stop Smoking ([facility]) Additional Instructions: Follow-up with your primary care provider. Return to ER symptoms worsen. I would recommend holding hydrochlorothiazide for the next 2 days to see if her symptoms resolve. Take Tylenol Motrin for any pain control. Follow-up with your primary care physician in 1-2 weeks. Laboratory studies today showed a mildly low potassium at 3.2. There are no signs of cardiac ischemia cardiac damage no signs of heart attacks. No signs of blood clots also no signs of any infection such as pneumonia on your workup. Referrals: DALTON ROMAN MD [NO LOCAL MD] - Follow up as needed
[2018-05-22 03:32] VITALS: BP 107/76
== END 2018-05-22 03:32 | disposition home or self-care (01) ==
LOC: ER 19:38
DX: R06.02 Shortness of breath (principal); R07.9 Chest pain, unspecified; E87.6 Hypokalemia; R00.2 Palpitations; F17.200 Nicotine dependence, unspecified, uncomplicated; I48.91 Unspecified atrial fibrillation; E11.9 Type 2 diabetes mellitus without complications; Z88.0 Allergy status to penicillin; Z86.711 Personal history of pulmonary embolism; Z87.442 Personal history of urinary calculi; Z85.828 Personal history of other malignant neoplasm of skin; Z90.49 Acquired absence of other specified parts of digestive tract; Z90.710 Acquired absence of both cervix and uterus
CPT/HCPCS: 36415; 71045; 80053; 82550; 82553; 84484; 85025; 85379; 93005; 93010; 99285

== ENCOUNTER 2018-07-22 07:02 | Emergency (ER) | payer BC, MEDICAID ==
--- NOTE | 2018-07-22 07:26 | ER Document Report ---
ED General - General Chief Complaint: Shortness Of Breath Stated Complaint: CHEST PAIN Time Seen by Provider: 07/22/18 07:25 Mode of Arrival: Ambulatory Information source: Patient Notes: 43-year-old female presents the emergency department with multiple complaints. Patient states that she has been having abdominal pressure intermittently for the last 3 months. Patient states when she gets this pressure in her abdomen she feels slightly short of breath and has chest pain. Patient denies any current chest pain or shortness of breath. She states that last night she did have the symptoms. Patient states that she just feels a pressure in her abdomen. She denies any pain in the abdomen. She is having some associated nausea but denies any vomiting, diarrhea, constipation, dysuria, hematuria, vaginal bleeding, vaginal discharge. Patient denies a history of coronary artery disease, hypertension, hyperlipidemia, diabetes, family history of coronary artery disease. Patient states that she does smoke. She does have a history of blood clots. She is not currently on any anticoagulants. Patient denies any recent travel or surgery. TRAVEL OUTSIDE OF THE [place] IN LAST 30 DAYS: No - HPI Onset: Other - intermittent since April 2018. Onset/Duration: Gradual Quality of pain: Fullness Associated symptoms: Chest pain, Nausea, Shortness of breath Exacerbated by: Denies Relieved by: Denies Similar symptoms previously: Yes Recently seen / treated by doctor: No - Related Data Allergies/Adverse Reactions: Penicillins Allergy (Mild, Verified 05/21/18 19:38) Hives Past Medical History - Social History Smoking Status: Current Some Day Smoker Family History: Reviewed & Not Pertinent, CAD - Past Medical History Cardiac Medical History: Reports: Hx Atrial Fibrillation - SVT, Hx DVT, Hx Pulmonary Embolism Pulmonary Medical History: Reports: Hx Bronchitis, Hx Pneumonia Neurological Medical History: Reports: Hx Migraine. Denies: Hx Seizures Endocrine Medical History: Reports: Hx Diabetes Mellitus Type 2 Renal/ Medical History: Reports: Hx Kidney Stones, Hx Ovarian Cysts. Denies: Hx Peritoneal Dialysis Malignancy Medical History: Reports: Hx Skin Cancer GI Medical History: Reports: Hx Gastroesophageal Reflux Disease, Hx Irritable Bowel Musculoskeletal Medical History: Reports Hx Arthritis, Reports Hx Multiple Sclerosis Psychiatric Medical History: Reports: Hx Anxiety, Hx Depression Traumatic Medical History: Reports: Hx Fractures Past Surgical History: Reports: Hx Section - x2, Hx Cholecystectomy, Hx Hysterectomy, Hx Orthopedic Surgery - Tumor removed from spine - Immunizations Immunizations up to date: Yes Hx Diphtheria, Pertussis, Tetanus Vaccination: Yes Review of Systems - Review of Systems Constitutional: No symptoms reported EENT: No symptoms reported Cardiovascular: Chest pain Respiratory: Short of breath Gastrointestinal: No symptoms reported Genitourinary: No symptoms reported Musculoskeletal: No symptoms reported Skin: No symptoms reported Neurological/Psychological: No symptoms reported -: Yes All other systems reviewed and negative Physical Exam - Vital signs Vitals: Temp Pulse Resp BP Pulse Ox 98.8 F 78 15 113/68 98 07/22/18 07:13 07/22/18 07:13 07/22/18 07:13 07/22/18 07:13 07/22/18 07:13 - Notes Notes: PHYSICAL EXAMINATION: GENERAL: Well-appearing, well-nourished and in no acute distress. HEAD: Atraumatic, normocephalic. EYES: Pupils equal round and reactive to light, extraocular movements intact, conjunctiva are normal. ENT: Nares patent, oropharynx clear without exudates. Moist mucous membranes. NECK: Normal range of motion, supple without lymphadenopathy LUNGS: Breath sounds clear to auscultation bilaterally and equal. No wheezes rales or rhonchi. HEART: Regular rate and rhythm without murmurs ABDOMEN: Soft, nontender, nondistended abdomen. No guarding, no rebound. No masses appreciated. Female : deferred Musculoskeletal: Normal range of motion, no pitting or edema. No cyanosis. NEUROLOGICAL: Cranial nerves grossly intact. Normal speech, normal gait. Normal sensory, motor exams PSYCH: Normal mood, normal affect. SKIN: Warm, Dry, normal turgor, no rashes or lesions noted. Course - Re-evaluation Re-evalutation: 07/22/18 07:25 EKG: Ventricular rate 78, AZ interval 164, QRS duration 82, QTc 452, normal sinus rhythm 07/22/18 07:41 Physical exam is unremarkable. Patient does not have any abdominal tenderness to palpation. Patient states that she is currently asymptomatic. Patient does have a history of PE. Patient says that she had back surgery done in Aug 2017 and began having shortness of breath afterwards. She says that's when the PE's were identified. She was on anticoagulants until Nov 2017 when she decided to stop taking them without physician approval. 07/22/18 07:[address] abd/pel done on 03/02/18 that showed partial hysterectomy with ovarian cysts. No acute process was seen. 07/22/18 11:03 I discussed results with the patient. Patient is not happy that her labs and imaging have come back normal. Patient insisting on CT abd/pel. Patient just had a CT abd/pel done 5 months ago. Patient understands the radiation risks of repeat CT scans. Wants a repeat CT abd/pel. 07/22/18 14:16 Patient upset about the wait. Wants to leave AMA. Patient understands the risks of leaving AMA. Understands that she may or her condition may worsen. Patient is competent to make decisions. - Vital Signs Vital signs: Temp Pulse Resp BP Pulse Ox 98.8 F 78 17 117/81 99 07/22/18 07:13 07/22/18 07:13 07/22/18 08:00 07/22/18 07:20 07/22/18 08:00 - Laboratory Result Diagrams: 07/22/18 08:05 07/22/18 08:05 Discharge - Discharge Clinical Impression: Abdominal pain Qualifiers: Abdominal location: generalized Qualified Code(s): R10.84 - Generalized abdominal pain Condition: Good Disposition: AGAINST MEDICAL ADVICE Instructions: Abdominal Pain ([facility]) Referrals: FRANK SALMERON MD [Primary Care Provider] - Follow up as needed
[2018-07-22 08:16] VITALS: BP 117/81
[2018-07-22 08:32] LABS: ABSOLUTE BASOPHILS # (AUTO) 0.1 10^3/uL (0.0-0.2); ABSOLUTE EOSINOPHILS # (AUTO) 0.1 10^3/uL (0.0-0.6); ABSOLUTE MONOCYTES (AUTO) 0.5 10^3/uL (0.1-1.4); ABSOLUTE NEUT (AUTO) 4.1 10^3/uL (1.7-8.2); EOSINOPHILS % (AUTO) 1.6 % (0-6); HEMATOCRIT 40.4 % (36.0-47.0); HEMOGLOBIN 13.9 g/dL (12.0-15.5); LYMPHOCYTES % (AUTO) 29.8 % (13-45); MEAN CORPUSCULAR HEMOGLOBIN 32.4 pg (27.0-33.4); MEAN CORPUSCULAR HGB CONC 34.4 g/dL (32.0-36.0); MEAN CORPUSCULAR VOLUME 94 fl (80-97); RED BLOOD COUNT 4.28 10^6/uL (3.72-5.28); RED CELL DISTRIBUTION WIDTH 12.9 % (11.5-14.0); SEGMENTED NEUTROPHILS % (AUTO) 60.6 % (42-78); TOTAL CELLS COUNTED % (AUTO) 100 %; WHITE BLOOD COUNT 6.7 10^3/uL (4.0-10.5)
[2018-07-22 08:41] LABS: ALANINE AMINOTRANSFERASE 23 U/L (9-52); ALBUMIN 4.4 g/dL (3.5-5.0); ALKALINE PHOSPHATASE 39 U/L (38-126); AMORPHOUS SEDIMENT,URINE TRACE /HPF; ANION GAP 7 (5-19); APPEARANCE,URINE HAZY; ASPARTATE AMINO TRANSFERASE 24 U/L (14-36); BILIRUBIN,DIRECT 0.4 mg/dL (0.0-0.4); BILIRUBIN,TOTAL 0.7 mg/dL (0.2-1.3); BILIRUBIN,URINE NEGATIVE (NEGATIVE); BLOOD UREA NITROGEN 11 mg/dL (7-20); CALCIUM 9.3 mg/dL (8.4-10.2); CARBON DIOXIDE 27 mmol/L (22-30); CHLORIDE 107 mmol/L (98-107); COLOR,URINE STRAW; GLUCOSE 92 mg/dL (75-110); GLUCOSE, URINE NEGATIVE (NEGATIVE); KETONES,URINE NEGATIVE (NEGATIVE); LEUKOCYTE ESTERASE,URINE NEGATIVE (NEGATIVE); LIPASE 44.6 U/L (23-300); NITRITE,URINE NEGATIVE (NEGATIVE); POTASSIUM 4.3 mmol/L (3.6-5.0); PROTEIN,URINE NEGATIVE (NEGATIVE); SODIUM 140.9 mmol/L (137-145); TOTAL PROTEIN 7.6 g/dL (6.3-8.2); UROBILINOGEN,URINE NEGATIVE mg/dL (<2.0)
[2018-07-22 08:42] LABS: URINE SPECIFIC GRAVITY 1.005
--- NOTE | 2018-07-22 09:03 | RADIOLOGY REPORT (SQ) ---
EXAM DESCRIPTION: ACUTE ABDOMEN SERIES COMPLETED DATE/TIME: 07/22/2018 8:53 am REASON FOR STUDY: abdominal pain COMPARISON: CT abdomen pelvis 03/02/2018 Supine and erect views abdomen 12/02/2012 NUMBER OF VIEWS: Three views. TECHNIQUE: Frontal chest, supine abdomen and upright abdomen radiographic images acquired. LIMITATIONS: None. FINDINGS: CHEST: Lungs clear of infiltrates.No pleural effusions or pneumothorax. No cardiomegaly FREE AIR: None. No abnormal gas collections. BOWEL GAS PATTERN: Nonobstructive pattern. No dilated loops or air fluid levels. CALCIFICATIONS: No suspicious calcifications. HARDWARE: Clips right upper quadrant post cholecystectomy. SOFT TISSUES: No gross mass or suggestion of organomegaly. BONES: No acute fracture. No worrisome bone lesions. OTHER: No other significant finding. IMPRESSION: NO RADIOGRAPHIC EVIDENCE FOR ACUTE ABDOMINAL DISEASE. TECHNICAL DOCUMENTATION: JOB ID: [id number] [employer]- All Rights Reserved Reading location - IP/workstation name: [email or web address]
[2018-07-22 09:14] LABS: PLATELET COUNT 260 10^3/uL (150-450)
--- NOTE | 2018-07-22 10:11 | EKG REPORT ---
SEVERITY:- NORMAL ECG - SINUS RHYTHM : Confirmed by: Kindra Fleming MD 22-Jul-2018 10:11:15
[2018-07-22] MEDS ORDERED: ONDANSETRON 4 MG TAB.RAPDIS PO ONE (12:29)
--- NOTE | 2018-07-22 13:06 | RADIOLOGY REPORT (SQ) ---
EXAM DESCRIPTION: CT ABD/PELVIS WITH IV ONLY COMPLETED DATE/TIME: 07/22/2018 12:54 pm REASON FOR STUDY: abdominal swelling COMPARISON: Abdominal films 07/22/2018 CT abdomen pelvis 03/02/2018, 08/28/2017 TECHNIQUE: CT scan of the abdomen and pelvis performed using helical scanning technique with dynamic intravenous contrast injection. No oral contrast. Images reviewed with lung, soft tissue, and bone windows. Reconstructed coronal and sagittal MPR images reviewed. Delayed images for evaluation of the urinary system also acquired. All images stored on PACS. All CT scanners at this facility use dose modulation, iterative reconstruction, and/or weight based d osing when appropriate to reduce radiation dose to as low as reasonably achievable (ALARA). [facility]: Dose Right [facility]: CareDose [facility]: Dose Right [facility]: Teradose 4D [facility]: [email or web address] CONTRAST TYPE AND DOSE: contrast/concentration: Isovue 350.00 mg/ml; Total Contrast Delivered: 77.0 ml; Total Saline Delivered: 47.0 ml RENAL FUNCTION: Creatinine 0.7 RADIATION DOSE: CT Rad equipment meets quality standard of care and radiation dose reduction techniq ues were employed. CTDIvol: 7.1 - 10.1 mGy. DLP: 940 mGy-cm.. LIMITATIONS: None. FINDINGS: LOWER CHEST: Tiny hiatal hernia. No nodules or infiltrates. LIVER: Normal size. No masses. No dilated ducts. SPLEEN: Normal size. No focal lesions. PANCREAS: No masses. No significant calcifications. No adjacent inflammation or peripancreatic fluid collections. Pancreatic duct not dilated. GALLBLADDER: Surgically absent ADRENAL GLANDS: No significant masses or asymmetry. RIGHT KIDNEY AND URETER: No solid masses. No significant calcifications. No hydronephrosis or hyd roureter. LEFT KIDNEY AND URETER: No solid masses. No significant calcifications. No hydronephrosis or hydr oureter. AORTA AND VESSELS: No aneurysm. No dissection. Renal arteries, SMA, celiac without stenosis. RETROPERITONEUM: No retroperitoneal adenopathy, hemorrhage or masses. BOWEL AND PERITONEAL CAVITY: No masses or inflammatory changes. No free fluid or peritoneal masses. APPENDIX: Normal. PELVIS: No mass. No free fluid. Normal bladder. Normal size female pelvic organs ABDOMINAL WALL: No masses. No hernias. BONES: No significant or acute findings. OTHER: No other significant finding. IMPRESSION: NO SIGNIFICANT OR ACUTE FINDING IN THE ABDOMEN OR PELVIS ON CT SCAN WITH IV CONTRAST. TECHNICAL DOCUMENTATION: JOB ID: [id number] Quality ID # [id number]: Final reports with documentation of one or more dose reduction techniques (e.g., Au tomated exposure control, adjustment of the mA and/or kV according to patient size, use of iterative reconstruction technique) 2010 [employer]- All Rights Reserved Reading location - IP/workstation name: [email or web address] [id number]
--- NOTE | 2018-07-22 17:30 | XCELERA REPORT ---
[address] [place] [facility] [address] Lower Extremity Venous Evaluation Procedure: Color flow and duplex imaging of the veins of the left lower extremity as well as the right Common Femoral vein. Right Sided Venous Evaluation The right common femoral vein is fully compressible. Spontaneous and phasic flow is present in the right common femoral vein. Left Sided Venous Evaluation Normal vessel filling wall to wall, compression and augmentation as well as Colour flow down to the infrageniculate veins. Interpretation Summary No duplex evidence of DVT or obstruction in the left lower extremity nor in the right Common Femoral vein. Name: GENE BOYKINLOLA Vega Age: 43 yrs Gender: Female : 1975 Patient Status: Emergency Patient Location: ER Study Date: 07/22/2018 08:11 AM Reason For Study: Left popliteal pain, hx of PE Ordering Physician: RUY MORRIS Performed By: Dai Christine : RUY MORRIS > Bhavesh Valdez
== END 2018-07-22 14:22 | disposition left against medical advice (07) ==
LOC: ER 07:02
DX: R10.84 Generalized abdominal pain (principal); R06.02 Shortness of breath; F17.200 Nicotine dependence, unspecified, uncomplicated; I48.91 Unspecified atrial fibrillation; E11.9 Type 2 diabetes mellitus without complications; Z86.711 Personal history of pulmonary embolism; Z90.710 Acquired absence of both cervix and uterus; Z87.442 Personal history of urinary calculi; Z90.49 Acquired absence of other specified parts of digestive tract; Z88.0 Allergy status to penicillin
CPT/HCPCS: 93005; 99285; 36415; 83690; 85025; 80053; 81001; 84484; 85379; 93971 ×2; 74022; 74177; 93010; S0119

== ENCOUNTER → 2018-09-08 | Outpatient (CLI) | payer BC ==
--- NOTE | 2018-09-09 08:00 | RADIOLOGY REPORT (SQ) ---
EXAM DESCRIPTION: MRI LUMBAR SPINE WITHOUT COMPLETED DATE/TIME: 09/08/2018 7:53 pm REASON FOR STUDY: LUMBAR RADICULOPATHY (M51.16) M51.16 INTERVERTEBRAL DISC DISORDERS W RADICULOPATH Y, LUMBAR COMPARISON: MRI lumbar spine 06/05/2017, 02/05/2016, 05/04/2015 TECHNIQUE: Sagittal and Axial imaging includes T1, T2, STIR and gradient echo sequences. Coronal T2/ HASTE imaging. LIMITATIONS: None. FINDINGS: VISUALIZED UPPER ABDOMEN: Limited evaluation. No acute or suspicious findings suggested. SEGMENTATION: No transitional anatomy. The lowest well-developed disc space is labeled L5-S1. ALIGNMENT: Anatomic. VERTEBRAE: Intact. BONE MARROW: Normal. No marrow replacement or reactive changes. DISC SIGNAL: Decreased T2 weighted intervertebral disc signal at L4-5 and L5-S1. Mild L5-S1 disc spa ce loss of height POSTERIOR ELEMENTS: Generally intact. No pars defect evident. HARDWARE: None in the spine. CORD AND CONUS: Normal in size and signal intensity. Conus at the L1-2 level. SOFT TISSUES: No aortic aneurysm seen. No bulky retroperitoneal adenopathy or mass. No paraspinal mas s or fluid. L1-L2: No significant spinal stenosis or exit foraminal stenosis. L2-L3: No significant spinal stenosis or exit foraminal stenosis. L3-L4: No significant spinal stenosis or exit foraminal stenosis. L4-L5: Mild diffuse posterior disc bulge with a small central annular tear is present. No significan t central canal narrowing. Very mild bilateral inferior foraminal narrowing without exit L4 nerve ro ot impingement. L5-S1: Mild posterior disc bulging is present with a small central annular tear and disc protrusion. This effaces the ventral epidural fat and abuts the thecal sac near the takeoff of the bilateral S1 nerve roots without significant mass effect. No central stenosis. Mild bilateral facet and ligament hypertrophy. Mild bilateral foraminal narrowing. LOWER THORACIC: Incompletely imaged. No stenosis seen. SACRUM: Visualized upper sacrum intact. OTHER: No other significant findings. IMPRESSION: Stable disc bulging and annular tears at L4-5 and L5-S1. No significant central or fora stanley encroachment. TECHNICAL DOCUMENTATION: JOB ID: [id number] [employer]- All Rights Reserved Reading location - IP/workstation name: [facility]
== END ==
LOC: RAD 14:04
PROVIDERS: ATTEND Specialist
DX: M51.16 Intervertebral disc disorders with radiculopathy, lumbar region (principal)
CPT/HCPCS: 72148

== ENCOUNTER 2019-03-08 15:45 | Emergency (ER) | payer BC ==
[2019-03-08 15:53] VITALS: BP 117/74
--- NOTE | 2019-03-08 16:42 | ER Document Report ---
ED Extremity Problem, Lower - General Chief Complaint: Knee Pain Stated Complaint: KNEE PAIN Time Seen by Provider: 03/08/19 16:13 Primary Care Provider: FRANK SALMERON MD [Primary Care Provider] - Follow up as needed Mode of Arrival: Wheelchair Information source: Patient Notes: 44-year-old female presented to ED for complaint of right knee pain. She states Friday she was cleaning and she squatted and then got up and moved and she heard and felt a large pop in her knee. She states she went home alternated ice and heat and elevated her knee this morning she woke up it was throbbing and feeling tight and swollen. She states she took her Percocet that she has left from her back surgery and some Aleve and then decided to come to the emergency room. TRAVEL OUTSIDE OF THE [place] IN LAST 30 DAYS: No - HPI Patient complains to provider of: Injury, Pain, Swelling Location: Knee Occurred: Other - Friday Where: Indoors Onset/Duration: Persistent, Worse Quality of pain: Achy, Sharp Severity: Severe Pain Level: 5 Context: Twisted Recent injury: Possibly Associated symptoms: Painful ambulation Exacerbated by: Hanging down, Movement, Walking Relieved by: Elevation, Ice, Rest - Related Data Allergies/Adverse Reactions: Penicillins Allergy (Mild, Verified 03/08/19 15:46) Hives Past Medical History - General Information source: Patient - Social History Smoking Status: Current Every Day Smoker Cigarette use (# per day): Yes - Half pack per day Chew tobacco use (# tins/day): No Smoking Education Provided: Yes - 4 minutes Frequency of alcohol use: None Drug Abuse: None Lives with: Family Family History: Reviewed & Not Pertinent, CAD Patient has suicidal ideation: No - Past Medical History Cardiac Medical History: Reports: Hx Atrial Fibrillation - SVT, Hx DVT, Hx Pulmonary Embolism Pulmonary Medical History: Reports: Hx Bronchitis, Hx Pneumonia Neurological Medical History: Reports: Hx Migraine Endocrine Medical History: Reports: Hx Diabetes Mellitus Type 2 Renal/ Medical History: Reports: Hx Kidney Stones, Hx Ovarian Cysts Malignancy Medical History: Reports: Hx Skin Cancer GI Medical History: Reports: Hx Gastroesophageal Reflux Disease, Hx Irritable Bowel Musculoskeletal Medical History: Reports Hx Arthritis, Reports Hx Multiple Sclerosis Skin Medical History: Reports None Psychiatric Medical History: Reports: Hx Anxiety, Hx Depression Traumatic Medical History: Reports: Hx Fractures - Both legs left ankle left arm left clavicle fingers both hands Infectious Medical History: Reports: None Past Surgical History: Reports: Hx Section - x2, Hx Cholecystectomy, Hx Hysterectomy, Hx Orthopedic Surgery - Tumor removed from spine, spinal fusion 2017 - Immunizations Immunizations up to date: Yes Hx Diphtheria, Pertussis, Tetanus Vaccination: Yes Review of Systems - Review of Systems Constitutional: No symptoms reported EENT: No symptoms reported Cardiovascular: No symptoms reported Respiratory: No symptoms reported Gastrointestinal: No symptoms reported Genitourinary: No symptoms reported Female Genitourinary: No symptoms reported Musculoskeletal: Joint pain - Right knee, Muscle pain, Muscle stiffness Skin: No symptoms reported Hematologic/Lymphatic: No symptoms reported Neurological/Psychological: No symptoms reported -: Yes All other systems reviewed and negative Physical Exam - Vital signs Vitals: Temp Pulse Resp BP Pulse Ox 98.1 F 111 H 16 117/74 96 03/08/19 15:50 03/08/19 15:50 03/08/19 15:50 03/08/19 15:50 03/08/19 15:50 Interpretation: Normal - General General appearance: Appears well, Alert - HEENT Head: Normocephalic, Atraumatic Eyes: Normal Pupils: PERRL - Respiratory Respiratory status: No respiratory distress Chest status: Nontender Breath sounds: Normal Chest palpation: Normal - Cardiovascular Rhythm: Regular Heart sounds: Normal auscultation Murmur: No - Abdominal Inspection: Normal Distension: No distension Bowel sounds: Normal Tenderness: Nontender Organomegaly: No organomegaly - Back Back: Normal, Nontender - Extremities General upper extremity: Normal inspection, Nontender, Normal color, Normal ROM, Normal temperature General lower extremity: Normal ROM, Normal temperature. No: Lili's sign Knee: Tender - Right, Ecchymosis, Pain with ROM, Patellar tendon intact, Popliteal fossa tender, Unable to bear weight - Neurological Neuro grossly intact: Yes Cognition: Normal Orientation: AAOx4 [place] Coma Scale Eye Opening: Spontaneous [place] Coma Scale Verbal: Oriented [place] Coma Scale Motor: Obeys Commands Kenneth Coma Scale Total: 15 Speech: Normal Motor strength normal: LUE, RUE, LLE, RLE Sensory: Normal - Psychological Associated symptoms: Normal affect, Normal mood - Skin Skin Temperature: Warm Skin Moisture: Dry Skin Color: Normal Course - Re-evaluation Re-evalutation: 03/08/19 17:45 X-ray was discussed with patient and written report of x-ray given to patient for follow-up with orthopedics. Patient was treated with a knee immobilizer. She states she was able to walk much better with the knee immobilizer and refuses crutches due to her recent spinal surgery. - Vital Signs Vital signs: Temp Pulse Resp BP Pulse Ox 98.1 F 111 H 16 117/74 96 03/08/19 15:50 03/08/19 15:50 03/08/19 15:50 03/08/19 15:50 03/08/19 15:50 - Diagnostic Test Radiology reviewed: Image reviewed, Reports reviewed Procedures - Immobilization Right Knee Time completed: 16:50 Immobilizer type: Knee immobilizer Performed by: PCT Post-Proc Neuro Vasc Exam: Normal Alignment checked and good: Yes Discharge - Discharge Clinical Impression: Right knee pain Qualifiers: Chronicity: acute Qualified Code(s): M25.561 - Pain in right knee Condition: Stable Disposition: HOME, SELF-CARE Additional Instructions: SPRAINED KNEE: Your sprained knee results from a stretching or tearing of the ligaments which support the joint. This often results from a bending stress -- such as a twisting fall while skiing or a "clip" while playing football. The ligaments will require time and protection to heal adequately. A knee sprain can be quite serious, and should be taken seriously. The usual treatment is splinting of the knee, ice packs, and elevation. You shouldn't walk on the leg if weightbearing is painful. Unless the sprain is obviously a minor one, follow-up exam is very important. The degree of ligament damage often cannot be fully assessed at first due to muscle spasm and pain. Your treatment plan may change based on the physician's findings during your follow-up examination. Call the doctor at once if there is severe swelling, increasing pain, numbness, or other alarming symptoms. SUSPECTED INTERNAL KNEE INJURY: The examiner of your injured knee suspects an internal injury to the cartilage or internal ligaments. This must be further investigated by an neurology specialist. The knee should be protected, ice packed, and elevated while awaiting your follow-up exam by the orthopedist. If there is severe swelling, severe pain, or any new symptoms while awaiting your exam, you should call the orthopedist. (If he/she is unavailable, call us or return for re-examination.) KNEE IMMOBILIZING SPLINT: The knee immobilizing splint will protect the injury while healing begins. This type of splint does not allow the knee to bend at all. No running or sports will be possible. If the splint allows painfree walking, it's giving adequate protection. If there is still significant pain, crutches may be needed as well. Don't do anything that hurts. Adjusted the splint, if necessary. The stiffeners on the sides are attached with Velcro, so they can be easily moved to adjust for thigh and calf size. If you need help with these adjustments, come back. You will lose muscle strength in the thigh while using this splint. The doctor will advise you if it's safe to do isometric knee exercises while you use it. ICE & ELEVATION: Apply ice packs frequently against the painful area. Many different schedules are recommended, such as "20 minutes on, 20 minutes off" or "one hour ice, two hours rest." If you need to work, you may need to go longer between ice treatments. You should plan to have the area ice packed AT LEAST one-fourth of the time. The ice should be applied over the wrap, tape, or splint, or over a layer of cloth -- not directly against the skin. Some ice bags have a built-in cloth and can be put directly on the skin. Your injured part should be elevated as much as possible over the next 48 hours. Try to keep the injury above the level of the heart. Avoid use of the injured area. Elevation and rest will decrease the swelling. USE OF [id number] IBUPROFEN: Ibuprofen (Advil, Nuprin, Medipren, Motrin IB) is a medication for fever and pain control. In addition, it has anti- inflammatory effects which may be beneficial, especially in the treatment of injuries. It's best to take ibuprofen with food. Persons with ulcer disease or allergy to aspirin should notify their physician of this before taking ibuprofen. Ibuprofen can be given every four to six hours, for a total of four doses daily. Age Pain or fever dose Antiinflammatory dose 6-8 yr 200 mg (1 tab) 200 mg (1 tab) 9-11 yr 200 mg (1 tab) 200-400 mg (1-2 tab) 11-14 yr 200-400 mg (1-2 tab) 400 mg (2 tab) 15-adult 400 mg (2 tab) 600 mg (3 tab) FOLLOW-UP CARE: If you have been referred to a physician for follow-up care, call the physicians office for an appointment as you were instructed or within the next two days. If you experience worsening or a significant change in your symptoms, notify the physician immediately or return to the Emergency Department at any time for re-evaluation. Forms: Smoking Cessation Education, Return to Work Referrals: FRANK SALMERON MD [Primary Care Provider] - Follow up as needed [facility] [Provider Group] - Follow up as needed
--- NOTE | 2019-03-08 16:56 | RADIOLOGY REPORT (SQ) ---
EXAM DESCRIPTION: KNEE RIGHT 4 VIEWS COMPLETED DATE/TIME: 03/08/2019 4:48 pm REASON FOR STUDY: Pain swelling injury COMPARISON: None. NUMBER OF VIEWS: Four views. TECHNIQUE: AP, lateral, and both oblique radiographic images acquired of the right knee. LIMITATIONS: None. FINDINGS: MINERALIZATION: Normal. BONES: No acute fracture or dislocation. No worrisome bone lesions. JOINT: No effusion. SOFT TISSUES: No soft tissue swelling. No radio-opaque foreign body. OTHER: No other significant finding. IMPRESSION: NEGATIVE STUDY OF THE RIGHT KNEE. NO RADIOGRAPHIC EVIDENCE OF ACUTE INJURY. TECHNICAL DOCUMENTATION: JOB ID: [id number] [employer]- All Rights Reserved Reading location - IP/workstation name: [email or web address]
== END 2019-03-08 17:38 | disposition home or self-care (01) ==
LOC: ER 15:45
DX: S80.01XA Contusion of right knee, initial encounter (principal); M25.561 Pain in right knee; X50.0XXA Overexertion from strenuous movement or load, initial encounter; Y93.89 Activity, other specified; E11.9 Type 2 diabetes mellitus without complications; F17.210 Nicotine dependence, cigarettes, uncomplicated; Z71.6 Tobacco abuse counseling; Z88.0 Allergy status to penicillin
CPT/HCPCS: 99406; 99283; 73564; L1830